=== PATIENT | male | born 1980 | race Caucasian/White ===

== ENCOUNTER → 2019-03-03 09:54 | Outpatient (CLI) | payer OTHER, SELFPAY ==
[2019-03-03 12:41] LABS: ALB/GLOB Ratio 1.2 RATIO (0.9-2.4); AST(SGOT) 36 U/L (15-37); Alanine Aminotransfer ALT/SGPT 46 U/L (16-61); Albumin, Serum 4.3 g/dL (3.2-5.0); Alkaline Phosphatase 53 U/L (45-117); Anion Gap 7 (5-15); BUN 17 mg/dL (7-18); Chloride 106 mmol/L (98-107); Cholesterol 204 mg/dL (200); Creatinine, Serum 1.13 mg/dL (0.70-1.30); EST Glomerular Filtration Rate 77 mL/min (>60); Est Glom Filt Rate - Afr Amer 93 mL/min (>60); Globulin 3.5 g/dL (2.2-4.2); Glucose 84 mg/dL (74-106); High Density Lipoprotein 58 mg/dL; Potassium 4.2 mmol/L (3.5-5.1); Protein, Total 7.8 g/dL (6.4-8.2); Sodium Level 140 mmol/L (136-145); Triglycerides 82 mg/dL; Very Low Density Lipoprotein 16 mg/dL (5-40)
[2019-03-06 15:04] LABS: CPK Total, Creatine Kinase 373 U/L (39-308)
== END ==
PROVIDERS: Family Provider Family Medicine; PCP Family Medicine; Referring Provider Family Medicine; Visit Provider Family Medicine
DX: E66.9 Obesity, unspecified (principal)
CPT/HCPCS: 36415; 80053; 80061; 82550

== ENCOUNTER → 2019-07-28 09:32 | Outpatient (CLI) | payer OTHER, SELFPAY ==
--- NOTE | 2019-07-28 09:36 | RAD_ITS ---
STUDY: X-RAY - RIGHT WRIST REASON FOR EXAM: Male, 39 years old. Wrist pain. Status post strenuous work outs at [employer]. TECHNIQUE: 3 view(s) of the wrist were obtained. COMPARISON: 11/30/2015. FINDINGS: Normal visualized distal radius and ulna. Normal radiocarpal articulation. Normal distal radioulnar articulation. Normal carpal bones. Normal carpal articulations. Normal carpometacarpal articulation of the thumb. Normal second through fifth carpometacarpal articulations. Normal visualized metacarpal bones. Mild soft tissue swelling around the wrist. RAD/Wrist min 3 Views IMPRESSION: 1. No acute fracture or acute osseous abnormality of the right wrist. 2. Mild soft tissue swelling around the wrist is the only change when compared to 11/30/2015. Electronically Signed: Gucci Emery MD at 8:32 EDT , Service support ,
== END ==
PROVIDERS: PCP Family Medicine; Referring Provider Family Medicine; Visit Provider Family Medicine
DX: M25.531 Pain in right wrist (principal)
CPT/HCPCS: 73110

== ENCOUNTER → 2020-03-25 07:42 | Outpatient (CLI) | payer OTHER, SELFPAY ==
[2020-03-25 10:21] LABS: Anion Gap 4 (5-15); BUN 16 mg/dL (7-18); BUN/Creat Ratio 14.4 RATIO (10-20); Calcium,Total 8.9 mg/dL (8.5-10.1); Chloride 105 mmol/L (98-107); Cholesterol 186 mg/dL (200); Creatinine, Serum 1.11 mg/dL (0.70-1.30); EST Glomerular Filtration Rate 78 mL/min (>60); Est Glom Filt Rate - Afr Amer 94 mL/min (>60); Glucose 96 mg/dL (74-106); High Density Lipoprotein 52 mg/dL; Potassium 3.7 mmol/L (3.5-5.1); Sodium Level 137 mmol/L (136-145); Triglycerides 184 mg/dL; Very Low Density Lipoprotein 37 mg/dL (5-40)
== END ==
PROVIDERS: PCP Family Medicine; Referring Provider Family Medicine; Visit Provider Family Medicine
DX: E78.5 Hyperlipidemia, unspecified (principal)
CPT/HCPCS: 36415; 80048; 80061

== ENCOUNTER → 2021-03-31 07:55 | Outpatient (CLI) | payer OTHER, SELFPAY ==
[2021-03-31 10:24] LABS: ALB/GLOB Ratio 1.1 RATIO (0.9-2.4); AST(SGOT) 91 U/L (15-37); Alanine Aminotransfer ALT/SGPT 162 U/L (16-61); Alkaline Phosphatase 48 U/L (45-117); Anion Gap 8 (5-15); BUN 18 mg/dL (7-18); BUN/Creat Ratio 17.3 RATIO (10-20); Calcium,Total 8.6 mg/dL (8.5-10.1); Chloride 106 mmol/L (98-107); Cholesterol 196 mg/dL (200); Creatinine, Serum 1.04 mg/dL (0.70-1.30); EST Glomerular Filtration Rate 84 mL/min (>60); Est Glom Filt Rate - Afr Amer 101 mL/min (>60); Globulin 3.7 g/dL (2.2-4.2); Glucose 98 mg/dL (74-106); High Density Lipoprotein 52 mg/dL; Potassium 3.5 mmol/L (3.5-5.1); Protein, Total 7.7 g/dL (6.4-8.2); Sodium Level 138 mmol/L (136-145); Triglycerides 111 mg/dL; Very Low Density Lipoprotein 22 mg/dL (5-40)
== END ==
PROVIDERS: PCP Family Medicine; Referring Provider Family Medicine; Visit Provider Family Medicine
DX: Z00.00 Encounter for general adult medical examination without abnormal findings (principal)
CPT/HCPCS: 36415; 80053; 80061

== ENCOUNTER 2021-07-25 15:48 | Outpatient (CLI) | payer OTHER, SELFPAY ==
--- NOTE | 2021-07-25 15:52 | RAD_ITS ---
STUDY: X-RAY - LEFT FOOT CLINICAL: Male, 41 years old. Injury to great toe. Pain. TECHNIQUE: 3 view(s) of the foot. COMPARISON: None. FINDINGS: Normal talus, calcaneus, and tarsal bones. Normal visualized subtalar, talonavicular, calcaneocuboid, tarsal and tarsometatarsal articulations. Normal metatarsi. Normal metatarsophalangeal joint of the great toe. Normal tibial and fibular sesamoid bones. Normal interphalangeal joint of the great toe. Normal phalanges of the great toe. Normal second through fifth metatarsophalangeal joints. Normal interphalangeal joints and phalanges of the lesser toes. The soft tissue structures are unremarkable. RAD/Foot min 3 Views IMPRESSION: No acute abnormality of the foot. Electronically Signed: Bay Morfin MD at 9:32 EST ,
== END 2021-07-25 23:59 | disposition home or self-care (01) ==
PROVIDERS: PCP Family Medicine; Referring Provider Family Medicine; Visit Provider Family Medicine
DX: S99.922A Unspecified injury of left foot, initial encounter (principal)
CPT/HCPCS: 73630

== ENCOUNTER → 2021-09-20 | Outpatient (CLI) | payer OTHER, SELFPAY ==
[2021-09-20 10:40] LABS: AST(SGOT) 51 U/L (15-37); Alanine Aminotransfer ALT/SGPT 106 U/L (16-61); Albumin, Serum 3.9 g/dL (3.2-5.0); Alkaline Phosphatase 44 U/L (45-117); Bilirubin, Direct 0.13 mg/dL (0.00-0.30); Globulin 3.4 g/dL (2.2-4.2); Protein, Total 7.3 g/dL (6.4-8.2)
== END | disposition home or self-care (01) ==
LOC: MTLAB 08:31
PROVIDERS: PCP Family Medicine; Referring Provider Family Medicine; Visit Provider Family Medicine
DX: R79.89 Other specified abnormal findings of blood chemistry (principal)
CPT/HCPCS: 36415; 80076

== ENCOUNTER → 2022-01-25 | Outpatient (CLI) | payer OTHER, SELFPAY ==
--- NOTE | 2022-01-25 16:49 | RAD_ITS ---
STUDY: X-RAY - RIGHT WRIST REASON FOR EXAM: Male, 41 years old. PAIN TECHNIQUE: 3 view(s) of the wrist were obtained. COMPARISON: 07.27.21 right wrist x-ray FINDINGS: Normal visualized distal radius and ulna. There is degenerative arthrosis of the radiocarpal articulation. Normal distal radioulnar articulation. There is been resection of the scaphoid since prior study. There is a fused appearance of the scapholunate and hamate and triquetrum.. Normal carpometacarpal articulation of the thumb. Normal second through fifth carpometacarpal articulations. Normal visualized metacarpal bones. RAD/Wrist min 3 Views IMPRESSION: Postoperative change of the wrist. Status post resection of the scaphoid and fusion of the lateral carpal bones. There is mild soft tissue edema. Electronically Signed: Kimmy Hutchison MD at 3:31 EDT ,
--- NOTE | 2022-01-25 16:50 | RAD_ITS ---
STUDY: X-RAY - RIGHT FOOT CLINICAL: Male, 41 years old. FOOT PAIN TECHNIQUE: 3 view(s) of the foot. COMPARISON: None. FINDINGS: There is an enthesophyte involving the posterior superior calcaneus at the site of insertion of the Achilles tendon. Normal visualized subtalar, talonavicular, calcaneocuboid, tarsal and tarsometatarsal articulations. Normal metatarsi. Normal metatarsophalangeal joint of the great toe. Normal tibial and fibular sesamoid bones. There is degenerative arthrosis of the interphalangeal joint of the great toe. Normal phalanges of the great toe. Normal second through fifth metatarsophalangeal joints. Normal interphalangeal joints and phalanges of the lesser toes. The soft tissue structures are unremarkable. RAD/Foot min 3 Views IMPRESSION: Minimal degenerative change. No visualized acute fracture. Electronically Signed: Kimmy Hutchison MD at 3:34 EDT ,
== END | disposition home or self-care (01) ==
LOC: MTRAD 16:48
PROVIDERS: PCP Family Medicine; Referring Provider Family Medicine; Visit Provider Family Medicine
DX: M25.539 Pain in unspecified wrist (principal); M79.671 Pain in right foot
CPT/HCPCS: 73110; 73630

== ENCOUNTER → 2022-03-22 | Outpatient (CLI) | payer OTHER, SELFPAY ==
[2022-03-22 12:40] LABS: AST(SGOT) 73 U/L (15-37); Alanine Aminotransfer ALT/SGPT 127 U/L (16-61); Alkaline Phosphatase 47 U/L (45-117); Anion Gap 10 (5-15); BUN 12 mg/dL (7-18); BUN/Creat Ratio 11.8 RATIO (10-20); Bilirubin, Direct 0.17 mg/dL (0.00-0.30); Calcium,Total 9.2 mg/dL (8.5-10.1); Chloride 104 mmol/L (98-107); Cholesterol 178 mg/dL (200); Creatinine, Serum 1.02 mg/dL (0.70-1.30); EST Glomerular Filtration Rate 85 mL/min (>60); Est Glom Filt Rate - Afr Amer 103 mL/min (>60); Globulin 3.9 g/dL (2.2-4.2); Glucose 128 mg/dL (74-106); High Density Lipoprotein 48 mg/dL; Potassium 3.8 mmol/L (3.5-5.1); Protein, Total 7.9 g/dL (6.4-8.2); Sodium Level 138 mmol/L (136-145); Triglycerides 119 mg/dL; Very Low Density Lipoprotein 24 mg/dL (5-40)
== END | disposition home or self-care (01) ==
LOC: MTLAB 09:38
PROVIDERS: PCP Family Medicine; Referring Provider Family Medicine; Visit Provider Family Medicine
DX: R79.89 Other specified abnormal findings of blood chemistry (principal)
CPT/HCPCS: 36415; 80053; 80061; 82248

== ENCOUNTER 2022-09-03 07:43 | Outpatient (RCR) | payer OTHER, SELFPAY | END 2022-09-16 23:59 | LOC: NS 07:43 | PROVIDERS: PCP Family Medicine; Visit Provider Family Medicine | DX: Z71.3 Dietary counseling and surveillance (principal); E66.9 Obesity, unspecified; Z68.39 Body mass index [BMI] 39.0-39.9, adult | CPT/HCPCS: 97802 ==

== ENCOUNTER 2022-10-08 07:52 | Outpatient (RCR) | payer OTHER, SELFPAY | END 2022-10-17 23:59 | LOC: NS 07:52 | PROVIDERS: PCP Family Medicine; Referring Provider Family Medicine; Visit Provider Family Medicine | DX: Z71.3 Dietary counseling and surveillance (principal); E66.9 Obesity, unspecified; Z68.39 Body mass index [BMI] 39.0-39.9, adult | CPT/HCPCS: 97803 ==

== ENCOUNTER 2022-11-19 08:49 | Outpatient (RCR) | payer OTHER, SELFPAY | END 2022-12-17 23:59 | LOC: NS 08:49 | PROVIDERS: PCP Family Medicine; Referring Provider Family Medicine; Visit Provider Family Medicine | DX: Z71.3 Dietary counseling and surveillance (principal); E66.9 Obesity, unspecified; Z68.39 Body mass index [BMI] 39.0-39.9, adult | CPT/HCPCS: 97803 ==

== ENCOUNTER → 2022-12-17 | Outpatient (CLI) | payer OTHER, SELFPAY ==
[2022-12-17 10:37] LABS: ALB/GLOB Ratio 0.9 RATIO (0.9-2.4); AST(SGOT) 110 U/L (15-37); Alanine Aminotransfer ALT/SGPT 172 U/L (16-61); Albumin, Serum 3.7 g/dL (3.2-5.0); Alkaline Phosphatase 54 U/L (45-117); Anion Gap 6 (5-15); BUN 11 mg/dL (7-18); Calcium,Total 8.5 mg/dL (8.5-10.1); Chloride 105 mmol/L (98-107); Cholesterol 192 mg/dL (200); EST Glomerular Filtration Rate 87 mL/min (>60); Est Glom Filt Rate - Afr Amer 105 mL/min (>60); Glucose 149 mg/dL (74-106); High Density Lipoprotein 42 mg/dL; Potassium 3.6 mmol/L (3.5-5.1); Protein, Total 7.7 g/dL (6.4-8.2); Sodium Level 138 mmol/L (136-145); Thyroid Stim Hormone (TSH) 1.04 uIU/mL (0.358-3.74); Triglycerides 155 mg/dL; Very Low Density Lipoprotein 31 mg/dL (5-40)
== END | disposition home or self-care (01) ==
PROVIDERS: PCP Family Medicine; Referring Provider Family Medicine; Visit Provider Family Medicine
DX: E11.65 Type 2 diabetes mellitus with hyperglycemia (principal)
CPT/HCPCS: 36415; 80053; 80061; 83036; 84403; 84443

== ENCOUNTER 2022-12-27 07:30 | Outpatient (RCR) | payer OTHER, SELFPAY | END 2023-01-17 23:59 | LOC: NS 07:30 | PROVIDERS: PCP Family Medicine; Referring Provider Family Medicine; Visit Provider Family Medicine | DX: Z71.3 Dietary counseling and surveillance (principal); E66.9 Obesity, unspecified; Z68.39 Body mass index [BMI] 39.0-39.9, adult | CPT/HCPCS: 97803 ==

== ENCOUNTER → 2023-01-09 | Outpatient (CLI) | payer OTHER, SELFPAY ==
--- NOTE | 2023-01-09 09:40 | RAD_ITS ---
STUDY: X-RAY - LUMBAR SPINE REASON FOR EXAM: Male, 42 years old. Low back pain. TECHNIQUE: 4 view(s) of the lumbar spine were obtained. COMPARISON: None FINDINGS: Normal lumbar lordosis. There is no substantial scoliosis. 8 mm of anterolisthesis of L4 on L3 and 7 mm of anterolisthesis of L5 on L4. Diffuse lower thoracic and lumbosacral facet sclerosis. Diffuse intervertebral disc space narrowing with osteophyte formation most marked at T10-T11, T11-T12, T12-L1, L2-L3 and L3-L4. Phleboliths. RAD/L/S Spine Min 4 Views IMPRESSION: Lower thoracic and lumbosacral spondylosis as described. Electronically Signed: Bay Morfin MD at 14:10 EDT ,
== END | disposition home or self-care (01) ==
LOC: MTRAD 09:35
PROVIDERS: PCP Family Medicine; Referring Provider Family Medicine; Visit Provider Family Medicine
DX: M54.50 Low back pain, unspecified (principal)
CPT/HCPCS: 72110

== ENCOUNTER 2023-01-24 07:23 | Outpatient (RCR) | payer OTHER, SELFPAY | END 2023-02-16 23:59 | LOC: NS 07:23 | PROVIDERS: PCP Family Medicine; Referring Provider Family Medicine; Visit Provider Family Medicine | DX: Z71.3 Dietary counseling and surveillance (principal); E66.9 Obesity, unspecified; Z68.39 Body mass index [BMI] 39.0-39.9, adult | CPT/HCPCS: 97803 ==

== ENCOUNTER 2023-04-29 07:00 | Outpatient (RCR) | payer OTHER, SELFPAY ==
--- NOTE | 2023-04-16 07:57 | HP.PTEVAL_ITS ---
Patient's Visit Information Visit Information Visit Information: SAPNA BERMUDEZ is a 43 year old M referred to Physical Therapy by Dr. Roberto Garcia MD with a diagnosis of DDD. Date of Evaluation: 04/16/23 Physical Therapist: RITA Giron Visit Plan Frequency: 2x /Week Duration: 4 Weeks Plan: 2X/ week for 4 weeks for Neutral spine core stability (HEP and modifiable routine to take to [employer]), postural exercises. At this point pt has no pain but is limited in ext ROM.... try some ext principle exercises when flared up and see if helps to reduce symptoms (pt kohler not have full R wrist ext and hard for him to do a press up). Subjective Subjective: Pt gets occ flare ups in his LB that at times it is pinching on sciatic nerve usually on the L side on the L hip and down the leg. He feels that his L leg feels different than the right. Most of the time it is fine but a couple of times of the year he will have the pain and not be able to move for a week and 1/2. This time it flared up on the right side. It generally radiates to the tailbone. He has had back pain since he was 10. The last time he flared up was the worst but the last time it was really concentrated into his hip. He had an x-ray and it showed some thinning of the discs. He had an MRI and went to see Dr Garcia that showed thinning of the disc and breaking down. Two discs were herniated to the right. discussed about trying PT for a few months and the next step would be shots that he can do after PT. He sleeps on his back or his side. 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 He has a standing desk he uses when it really flares up. Pain back pain: Pain Intensity (Out of 10): 0 L hip pain: Pain Intensity (Out of 10): 0 R hip pain: Pain Intensity (Out of 10): 0 Objective Objective: Gait: Normal gait pattern Standing heel and toe raises pt is able to do with good strength and full ROM Trunk AROM: flexion 100%, Ext 50%, SB B 75%, Rot B 75% ( no pain) LE MMT: R hip flex 16.3 and L 16.5 R knee ext 27.2 and L 23.4 R knee flex 13.7 and L 14.7 Patellar DTR: 1+/3 B SLUMP TEST: Negative B SLR: + on the L for R sided back pain. - on the R B HS tightness present Prone to VIRY X 10 (tight). pt felt looser after did them with less pain Attempted Prone press ups but pt has had R wrist surgery and does not have full ROM so went to repeated ext in stand 2 X 10... a little increase in back pain more than when walked in. Balance/Special Test Scores Oswestry Low Back Score: 4 Goals Goal 1:: I HEP (pt has membership at [employer]) Goal Time Frame: 4-6 Weeks Goal 2:: Sit with more upright posture at work and ADL's Goal Time Frame: 4-6 Weeks Goal 3:: Improve ext ROM to WFL without pain Goal Time Frame: 4-6 Weeks Rehabilitation Potential Rehabilitation Potential: Good Anticipated Interventions Patient/Client Instruction: Educate patient on: Condition and Plan of Care For the Purpose of:: To decrease pain, To increase ROM, To improve nutrient delivery to tissue, To improve muscle performance and motor function, To improve ability to perform ADL's, To increase tolerance to activity/condition/position, To improve performance and independence with ADL's, To decrease level of superv ision to perform tasks, To improve ability of physical actions for home/community/work/leisure, To improve health of tissue and To increase flexibility/ROM Therapeutic Exercise to Include: Strength training, Body mechanics, Postural training, Flexibilty training, Neuromotor development, Active ROM, Dynamic Lumbar Stabilization and Alek Exercises For the Purpose of:: To decrease pain, To decrease swelling/inflammation, To increase ROM, To improve nutrient delivery to tissue, To improve muscle performance and motor function, To improve ability to perform ADL's, To increase tolerance to activity/condition/position, To improve performance and independence with ADL's, To improve health of tissue, To decrease soft tissue restriction and To increase flexibility/ROM Manual Therapy Techniques to Include: Mobilization For the Purpose of:: To increase ROM, To improve nutrient delivery to tissue and To improve muscle performance and motor function IF ES: Yes Cryotherapy (ice pack, ice massage): Yes Thermo therapy (hot pack): Yes For the Purpose of:: To decrease pain, To decrease swelling/inflammation, To increase ROM and To improve nutrient delivery to tissue Text: Thank you for the opportunity to evaluate your patient. For Medicare and Medicare HMO plans, please review the plan of care and approve it. It will need to be FAXED BACK to us at [phone] for Medicare purposes. For Medicare only, by signing this I certify the plan of care. Please let me know if there are questions or concerns regarding this plan of care. Physician Signature: Date:
--- NOTE | 2023-07-10 16:41 | HP.PT.NRP(2) ---
Patient Information Patient Information: SAPNA BERMUDEZ was seen in my office for initial evaluation on . The following Plan of Care was established for this patient: Last Seen Last Seen: This patient was last seen in our office . Pertinent comments regarding their Physical therapy will appear below: At this point I will be discontinuing this patient from physical therapy. I would be happy to see this patient again in the future if found appropriate by the physician. Thank you! Chanel Mendieta, MPT
== END 2023-04-29 19:00 | disposition home or self-care (01) ==
LOC: PT 07:00
PROVIDERS: PCP Family Medicine; Referring Provider Orthopaedic Surgery Orthopaedic Surgery of the Spine; Visit Provider Orthopaedic Surgery Orthopaedic Surgery of the Spine
DX: M51.36 Other intervertebral disc degeneration, lumbar region (principal)
CPT/HCPCS: 97110; 97161

== ENCOUNTER → 2024-03-27 | Outpatient (CLI) | payer OTHER, SELFPAY ==
[2024-03-27 18:05] LABS: ALB/GLOB Ratio 1.2 RATIO (0.9-2.4); AST(SGOT) 71 U/L (15-37); Alanine Aminotransfer ALT/SGPT 118 U/L (16-61); Alkaline Phosphatase 46 U/L (45-117); Anion Gap 6 (5-15); BUN 12 mg/dL (7-18); BUN/Creat Ratio 12.2 RATIO (10-20); Calcium,Total 8.9 mg/dL (8.5-10.1); Chloride 106 mmol/L (98-107); Cholesterol 153 mg/dL (200); Creatinine, Serum 0.98 mg/dL (0.70-1.30); EST Glomerular Filtration Rate 88 mL/min (>60); Est Glom Filt Rate - Afr Amer 107 mL/min (>60); Globulin 3.4 g/dL (2.2-4.2); Glucose 90 mg/dL (74-106); High Density Lipoprotein 51 mg/dL; Potassium 3.6 mmol/L (3.5-5.1); Protein, Total 7.4 g/dL (6.4-8.2); Sodium Level 138 mmol/L (136-145); Triglycerides 112 mg/dL; Very Low Density Lipoprotein 22 mg/dL (5-40)
== END | disposition home or self-care (01) ==
LOC: MTLAB 16:35
PROVIDERS: PCP Family Medicine; Referring Provider Family Medicine; Visit Provider Family Medicine
DX: E11.65 Type 2 diabetes mellitus with hyperglycemia (principal)
CPT/HCPCS: 36415; 80053; 80061; 84443

== ENCOUNTER → 2024-05-14 | Outpatient (CLI) | payer OTHER, SELFPAY ==
--- NOTE | 2024-05-14 11:12 | RAD_ITS ---
STUDY: X-RAY - RIGHT KNEE REASON FOR EXAM: Male, 44 years old. swelling, ? nodule in infrapatellar area. R knee TECHNIQUE: 4 view(s) of the knee. COMPARISON: None. FINDINGS: Normal visualized distal femur. Normal visualized proximal tibia and fibula. Normal proximal tibiofibular articulation. There is mild degenerative arthrosis of the medial femorotibial compartment. There is mild degenerative arthrosis of the lateral femorotibial compartment. There is mild degenerative arthrosis of the patellofemoral articulation. The soft tissue structures are unremarkable. RAD/Knee 4 or More Views IMPRESSION: Degenerative arthrosis. Electronically Signed: Marino Plunkett MD at 17:33 EST ,
== END | disposition home or self-care (01) ==
LOC: MTRAD 11:12
PROVIDERS: PCP Family Medicine; Referring Provider Family Medicine; Visit Provider Family Medicine
DX: M25.561 Pain in right knee (principal)
CPT/HCPCS: 73564

== ENCOUNTER → 2024-08-06 | Outpatient (CLI) | payer OTHER, SELFPAY ==
--- NOTE | 2024-08-06 15:43 | RAD_ITS ---
EXAM: XR Chest, 2 Views CLINICAL INDICATION: COUGH TECHNIQUE: Frontal and lateral views of the chest. COMPARISON: No relevant prior studies available. FINDINGS: LUNGS AND PLEURAL SPACES: Unremarkable. No consolidation. No pneumothorax. HEART: Unremarkable. No cardiomegaly. MEDIASTINUM: Unremarkable. Normal mediastinal contour. BONES/JOINTS: Unremarkable. No acute fracture. RAD/Chest PA and Lateral IMPRESSION: No acute cardiopulmonary process. Reading [facility]
== END | disposition home or self-care (01) ==
LOC: MTRAD 15:43
PROVIDERS: PCP Family Medicine; Referring Provider Family Medicine; Visit Provider Family Medicine
DX: J40 Bronchitis, not specified as acute or chronic (principal)
CPT/HCPCS: 71046

== ENCOUNTER → 2025-03-30 | Outpatient (CLI) | payer OTHER, SELFPAY ==
--- OUTSIDE RECORDS SUMMARY | 2025-03-30 08:31 | XMS RPT_ITS | CCD ---
Author Organization [facility] Care Team Providers Care Store Deli Manager Name Role Phone Coby Sanford MD Unavailable ELIER SOMERS Referring Unavailabl e Unavailable Primary Care Provider UnavailELIER Patel Referring Unavailabl e Elier Somers Referring Unavailable Elier Somers Primary Care Unavailable Elier Somers Attending Unavailable Yonis, Elier Referring Unavailable Yonis, Elier Primary Care Unavailable Elier Somers Attending Unavailable Yonis, Elier Referring Unavailable Yonis, Elier Primary Care Unavailable Elier Somers Attending Unavailable Elier Somers Referring Unavailable Elier Somers Primary Care Unavailable Padma Mcpherson Attending Unavailable Yonis DUTTA, Dr. Mosquera Primary Care Provider Yonis DUTTA, Dr. Mosquera Attending Provider Dr. Elier Somers MD Referring Provider Padma Ibarra Attending Provider Medications Current Medications Medication Drug Class(es) Dates Sig (Normalized) Sig (Original) glucosamine sulfate 500 mg oral tablet (2 sources) Start: 02-27-2023 take 1 tablet by mouth once daily Glucosamine Sulfate (Cidatrine (Glucosamine)) 500 mg tablet Active 500 mg PO DAILY February 27, 2023 12:00am administer with a meal Semaglutide (2 sources) Start: 02-27-2023 Semaglutide (Ozempic) 1 mg/dose (4 mg/3 mL) pen injector Active mg SC February 27, 2023 12:00am Start: 02-27-2023 Semaglutide (O zempic) 1 mg/dose (4 mg/3 mL) pen injector Active MG SC February 26, 2023 11:00pm Vitamin B Complex (B Complex-Vitamin B12) tablet (2 sources) Start: 02-27-2023 Vitamin B Comp tanja (B Complex-Vitamin B12) tablet Active 1 {tbl} PO DAILY February 27, 2023 12:00am Start: 02-27-2023 take 1 tablet by tanmay th once daily Vitamin B Complex (B Complex-Vitamin B12) tablet Active 1 TABLET PO DAILY February 26, 2023 11:00pm Completed/Discontinued Medications Medication Drug Class(es) Dates Sig (Normalized) Sig (Original) GLUCOSAMINE-CHONDROI T-VIT C-MN (1 source) Start: 04-25-2020 GLUCOSAMINE 1500 COMPLEX CAPS 1 capsule daily GLUCOSAMINE-CHONDRO IT-VIT C-MN [id number] Constanza Peña LPN 24 hr metFORMIN hydrochloride 500 mg extended release oral tablet (2 sources) Biguanide Start: 02-27-2023 End: 07-11-2024 take 1 tablet by mouth every twenty-four hours Metformin 500 mg tablet extended release 24 hr Discontinued mg PO February 27, 2023 12:00am July 11, 2024 2:14pm Start: 02-27-2023 Metformin Acti ve MG PO February 26, 2023 11:00pm oseltamivir 75 mg oral capsule (1 source) Neuraminidase Inhibitor Start: 07-11-2024 End: 07-16-2024 take 1 capsule by mouth twice daily Oseltamivir (Tamiflu) 75 mg capsule Discontinued 75 mg PO TWICE A DAY 10 5 July 11, 2024 1:00am July 15, 2024 1:00am July 16, 2024 1:13am VITAMINS-LIPOTROPI CS (1 source) Start: 04-25-2020 COMPLEX B-100 CR-TABS 1 tablet daily VITAMINS-LIPOTROPI CS [id number] Constanza Guerrerosaro 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 Problems Active Problems Problem Classification Problem Date Documented Date Episodic/Chronic Chronic obstructive pulmonary disease and bronchiectasis (1 source) Bronchitis, not specified as acute or chronic; Translations: [Bronchitis, not specified as acute or chronic] Onset: 08-14-2024 Episodic Diabetes mellitus with complications (1 source) Type 2 diabetes mellitus with hyperglycemia; Translations: [Type 2 diabetes mellitus with hyperglycemia] Onset: 04-22-2024 Chronic Diabetes mellitus without complication (2 sources) Diabetes mellitus; Translations: [Type 2 diabetes mellitus without complications] 02-27-2023 Chronic Influenza (3 sources) Influenza due to other identified influenza virus with other respiratory manifestations; Translations: [Influenza due to Influenza A virus] Onset: 08-05-2024 07-11-2024 Episodic Joint disorders and dislocations; trauma-related (1 source) Rupture of wrist ligament; Translations: [Sprain of other part of right wrist and hand, initial encounter] Onset: 04-29-2020 04-29-2020 Chronic Other acquired deformities (1 source) Spondylolisthesis, site unspecified; Translations: [Spondylolisthesis, site unspecified] Onset: 02-14-2023 Episodic Other nervous system disorders (1 source) Carpal tunnel syndrome, right upper limb; Translations: [Carpal tunnel syndrome, right upper limb] Onset: 01-05-2016 01-05-2016 Chronic Other non-traumatic joint disorders (1 source) Pain in right knee; Translations: [Pain in right knee] Onset: 06-10-2024 Episodic Other screening for suspected conditions (not mental disorders or infectious disease) (1 source) Other specified abnormal findings of blood chemistry; Translations: [Other specified abnormal findings of blood chemistry] Onset: 04-20-2022 Episodic Spondylosis; intervertebral disc disorders; other back problems (2 sources) Degeneration of lumbar intervertebral disc; Translations: [Other intervertebral disc degeneration, lumbar region] 02-26-2023 Chronic Spondylosis; intervertebral disc disorders; other back problems (4 sources) Lumbar radiculopathy; Translations: [Radiculopathy, lumbar region] 02-27-2023 Episodic Past or Other Problems Problem Classification Problem Date Documented Da te Episodic/Chronic Unclassified (1 source) Problem Results Test Name Value Interpretation Reference Range Facility Chest PA and Lateralon 08-06 Chest PA and Lateral [facility] Imaging Services [address], [place] [id number] Chest PA and Lateral MR#: [id number] Acct: [id number] Name: SAPNA BOYD Rep #: [id number] : 1980 M 44 From: Efe Carcamo MD PCP: Dr. Elier Somers MD Status: REG CLI Study: Chest PA and Lateral Date of Exam: 08/06/24 Exam# [id number] Ordering Dr: Elier Somers EXAM: XR Chest, 2 Views CLINICAL INDICATION: COUGH TECHNIQUE: Frontal and lateral views of the chest. COMPARISON: No relevant prior studies available. FINDINGS: LUNGS AND PLEURAL SPACES: Unremarkable. No consolidation. No pneumothorax. HEART: Unremarkable. No cardiomegaly. MEDIASTINUM: Unremarkable. Normal mediastinal contour. BONES/JOINTS: Unremarkable. No acute fracture. RAD/Chest PA and Lateral IMPRESSION: No acute cardiopulmonary process. Reading [facility] CC: Dr. Elier Somers MD Java Lead Architect: Signed Normal [facility] Urgent Care Visit Reporton 0 07-11-2024 Urgent Care Visit Report [facility] [address], [address] [place] [address] OFFICE VISIT Date of Service: 07/11/24 MR#: [id number] Acct: [id number] Name: SAPNA BOYD Rep #: [id number] : 1980 Provider: MERCY Mcpherson Age/Sex: 44/M Location: [facility] Status: Signed Intake Vital Signs 02/27/23 07:27 07/11/24 12:47 07/11/24 13:13 Height 6 ft 1 in 6 ft 1 in 6 ft 1 in Weight: 269 lb 8 oz BMI 35.5 BP 110/62 Blood Pressure Location Rt brachial Position Sitting Respiration 17 Pulse 90 Pulse Source NIBP Temp 98.6 F Temp Source Oral Pulse Oximetry (%) 97 Oxygen Delivery Method room air Intake Visit Reasons: Cough Chief Complaint: cough, CRUMP, fever, drainage Senior Architect Required: No Is patient in pain?: No Allergies No Known Allergies Allergy (Verified 07/11/24 13:34) Medications ???Medication ???Instructions ???Recorded ???Confirmed ???Type glucosamine sulfate 500 mg tablet 500 mg PO DAILY 02/27/23 02/27/23 History (Cidatrine (glucosamine)) semaglutide 1 mg/dose (4 mg/3 mL) mg subcut 02/27/23 02/27/23 Histo ry subcutaneous pen injector (Ozempic) vitamin B complex (B 1 tab PO DAILY 02/27/23 02/27/23 H istory Complex-Vitamin B12 tablet) oseltamivir 75 mg capsule (Tamiflu) 75 mg PO BID 5 days #10 caps 07/11/24 Rx Have you fallen in the past year?: No Nurse's Note: cough, CRUMP, fever, drainage x [address], BA PFSH Surgical History (Updated 02/27/23 @ 07:34 by Heriberto Steiner, RN) History of mandibular surgery H/O right wrist surgery Hx of carpal tunnel repair Family History (Updated 02/27/23 @ 07:35 by Heriberto Steiner, RN) Mother Hypertension Social History (Updated 02/27/23 @ 07:36 by Heriberto Steiner, RN) Smoking Status: Never smoker alcohol intake: current alcohol intake frequency: holidays/special occasions only HPI HPI Chief Complaint: cough, CRUMP, fever, drainage Details: SAPNA BOYD, is a 44 M who presents to the office today for cold sx -+ flu A in office -sx started on - myalgias, low grade temp, cough, runny nose - no other sx -tried so far Dayquil and Nyquil ROS Const Constitutional: Positive for other (ROS negative x6 except what was placed in HPI) Exam Const General: cooperative, comfortable and no acute distress Orientation: alert, awake and oriented x3 HENMT Other: -deferred d/t + flu A Resp Effort Inspection: normal respiratory effort, able to speak in complete sentences and symmetric chest movement Auscultation: Bilateral: Clear to Auscultation, Left: Clear to Auscultation and Right: Clear to Auscultation Cardio Rate: regular rate Rhythm: regular rhythm Heart Sounds: S1 normal and S2 normal GI Auscultation: normal bowel sounds Palpation: soft Skin General: no rashes or lesions noted and turgor normal Neuro General: patient alert, patient awake and patient oriented x3 Cognition: normal cognition Speech: speech normal Psych Appearance: grossly normal Mental Status: mental status grossly normal Attitude: cooperative Thought Process: normal Thought Content: normal Coding Level of Care Code Off vis,new,level 3 Diagnoses Influenza A J10.1 Assessment and Plan Assessment and Plan (1) Influenza A: Status: Acute Plan: Drink plenty of fluids. This includes water, warm soup and drinks that contain minerals, called rehydration solutions. Rest. You may need to change or cancel some of your activities depending on your symptoms. Take acetaminophen (Tylenol, others) or ibuprofen (Advil, Motrin IB, others). These medicines can help lower fever and help with muscle aches or headache. Stay home from work, school or other public places for at least 24 hours after your fever is gone without use of fever-reducing medicine. This helps stop the spread of the virus that causes flu. Most people feel better within a week of becoming infected with the flu virus. But coughing may last for another one or two weeks. Please follow up with your Primary Care Physician for ongoing chronic problems. If symptoms change or worsen, please present to Emergency Room for further evaluation 1. See visit diagnoses, disposition, and orders. 2. Reviewed and updated medication list; Discussed probable diagnosis, test results if available in office today and management options with patient/guardian: agreed to the medical plan above 3. Education provided regarding visit today, see after visit summary. Instruction provided in the use of fluids, vaporizer, acetaminophen, and/or other OTC medication for symptom control. Explained use of antibiotics only for proven or strongly suspected bacterial infections. 4. Prevention and health maintenance with primary care provider. 5. Patient/guardian educated to pro (more content not included)... Normal [facility] Knee 4 or More Viewson 05-14 Knee 4 or More Views [facility] Imaging Services [address], [place] [id number] Knee 4 or More Views MR#: [id number] Acct: [id number] Name: SAPNA BOYD Rep #: [id number] : 1980 M 44 From: Marino Plunkett MD PCP: Dr. Elier Somers MD Status: REG CLI Study: Knee 4 or More Views Date of Exam: 05/14/24 Exam# [id number] Ordering Dr: Elier Somers [id number] STUDY: X-RAY - RIGHT KNEE REASON FOR EXAM: Male, 44 years old. swelling, ? nodule in infrapatellar area. R knee TECHNIQUE: 4 view(s) of the knee. COMPARISON: None. FINDINGS: Normal visualized distal femur. Normal visualized proximal tibia and fibula. Normal proximal tibiofibular articulation. There is mild degenerative arthrosis of the medial femorotibial compartment. There is mild degenerative arthrosis of the lateral femorotibial compartment. There is mild degenerative arthrosis of the patellofemoral articulation. The soft tissue structures are unremarkable. RAD/Knee 4 or More Views IMPRESSION: Degenerative arthrosis. Electronically Signed: Marino Plunkett MD at 17:33 EST , CC: Dr. Elier Somers MD Java Lead Architect: Signed Normal [facility] Comprehensive Metabolic Prof ilon 03-27-2024 Albumin [Mass/Vol] 4.0 g/dL Normal 3.2-5.0 [facility] Comment on above: Order Comment: Order Date: 02/12/24 Order Info: [id number] - CMP Order Info: [id number] - LIPID Order Info: [id number] - TSH Performed By: #### L 501.9520, L500.4050, L500.4100 #### [facility] [address] [place], [place], [id number] Albumin/Globulin [Mass ratio] 1.2 {ratio} Normal 0.9-2.4 [facility] Comment on above: Order Comment: Order Date: 02/12/24 Order Info: [id number] - CMP Order Info: [id number] - LIPID Order Info: [id number] - TSH Performed By: #### L 501.9520, L500.4050, L500.4100 #### [facility] [address] [place], [place], [address] ALK P 46 U/L Normal 45-117 [facility] Comment on above: Order Comment: Order Date: 02/12/24 Order Info: 785-1 - CMP Order Info: [id number] - LIPID Order Info: [id number] - TSH Performed By: #### L 501.9520, L500.4050, L500.4100 #### [facility] [address] [place], [address] ALT [Catalytic activity/Vol] 118 U/L High 16-61 [facility] Comment on above: Order Comment: Order Date: 02/12/24 Order Info: 785- - CMP Order Info: - LIPID Order Info: 3 - TSH Performed By: #### L 501.9520, L500.4050, L500.4100 #### [facility] [address] [place], [place], [address] AST [Catalytic activity/Vol] 71 U/L High 15-37 [facility] Comment on above: Order Comment: Order Date: 02/12/24 Order Info: 785-05 - CMP Order Info: - LIPID Order Info: 3 - TSH Performed By: #### L 501.9520, L500.4050, L500.4100 #### [facility] [address] [place], [address] Bilirubin [Mass/Vol] 0.60 mg/dL Normal 0.20-1.00 [facility] Comment on above: Order Comment: Order Date: 02/12/24 Order Info: 785-1 - CMP Order Info: [id number] - LIPID Order Info: [id number] - TSH Result Comment: For patients on eltrombopag therapy, use of Dimension [place] TBIL is not recommended. Performed By: #### L 501.9520, L500.4050, L500.4100 #### [facility] [address] [place], [address] BUN/CRE 12.2 RATIO Normal 10-20 [facility] Comment on above: Order Comment: Order Date: 02/12/24 Order Info: 785-1 - CMP Order Info: [id number] - LIPID Order Info: 3015-3 - TSH Performed By: #### L 501.9520, L500.4050, L500.4100 #### [facility] [address] [place], [address] CA,Total 8.9 mg/dL Normal 8.5-10.1 [facility] Comment on above: Order Comment: Order Date: 02/12/24 Order Info: 785- - CMP Order Info: - LIPID Order Info: 3 - TSH Performed By: #### L 501.9520, L500.4050, L500.4100 #### [facility] [address] [place], [address] Chloride [Moles/Vol] 106 mmol/L Normal 98-107 [facility] Comment on above: Order Comment: Order Date: 02/12/24 Order Info: 785-05 - CMP Order Info: [id number] - LIPID Order Info: 3015-3 - TSH Performed By: #### L 501.9520, L500.4050, L500.4100 #### [facility] [address] [place], [address] CO2 [Moles/Vol] 26.0 mmol/L Normal 21.0-32.0 [facility] Comment on above: Order Comment: Order Date: 02/12/24 Order Info: 0786-1 - CMP Order Info: [id number] - LIPID Order Info: 3015-3 - TSH Performed By: #### L 501.9520, L500.4050, L500.4100 #### [facility] [address] [place], [address] Creatinine [Mass/Vol] 0.98 mg/dL Normal 0.70-1.30 [facility] Comment on above: Order Comment: Order Date: 02/12/24 Order Info: 07 - CMP Order Info: [id number] - LIPID Order Info: [id number] - TSH Result Comment: The validity of the calculated GFR GFRAA in patients over 70 years has not been determined. Clinical correlation is essential. Performed By: #### L 501.9520, L500.4050, L500.4100 #### [facility] [address] [place], [address] EST GFR - AA 107 mL/min Normal >60 [facility] Comment on above: Order Comment: Order Date: 02/12/24 Order Info: 785-05 - CMP Order Info: - LIPID Order Info: [id number] - TSH Result Comment: Afri can Citizen Of [place] GFR Calc Performed By: #### L 501.9520, L500.4050, L500.4100 #### [facility] [address] [place], [address] GAP 6 Normal 5-15 [facility] Comment on above: Order Comment: Order Date: 02/12/24 Order Info: 785-05 - CMP Order Info: [id number] - LIPID Order Info: [id number] - TSH Performed By: #### L 501.9520, L500.4050, L500.4100 #### [facility] [address] [place], [address] GFR/1.73 sq M.predicted among non-blacks MDRD (S/P/Bld) [Vol rate/Area] 88 mL/min/{1.73_m2} Normal >60 [facility] Comment on above: Order Comment: Order Date: 02/12/24 Order Info: 07 - CMP Order Info: [id number] - LIPID Order Info: 3 - TSH Result Comment: Non- GFR Calc Performed By: #### L 501.9520, L500.4050, L500.4100 #### [facility] [address] [place], [address] Globulin (S) [Mass/Vol] 3.4 g/dL Normal 2.2-4.2 [facility] Comment on above: Order Comment: Order Date: 02/12/24 Order Info: 785- - CMP Order Info: [id number] - LIPID Order Info: 3015-3 - TSH Performed By: #### L 501.9520, L500.4050, L500.4100 #### [facility] [address] [place], [address] Glucose [Mass/Vol] 90 mg/dL Normal 74-106 [facility] Comment on above: Order Comment: Order Date: 02/12/24 Order Info: 785-05 - CMP Order Info: - LIPID Order Info: 3 - TSH Performed By: #### L 501.9520, L500.4050, L500.4100 #### [facility] [address] [place], [address] Potassium [Moles/Vol] 3.6 mmol/L Normal 3.5-5.1 [facility] Comment on above: Order Comment: Order Date: 02/12/24 Order Info: 785-05 - CMP Order Info: [id number] - LIPID Order Info: 3015-3 - TSH Performed By: #### L 501.9520, L500.4050, L500.4100 #### [facility] [address] [place], [address] Sodium [Moles/Vol] 138 mmol/L Normal 136-145 [facility] Comment on above: Order Comment: Order Date: 02/12/24 Order Info: 785-05 - CMP Order Info: [id number] - LIPID Order Info: 3 - TSH Performed By: #### L 501.9520, L500.4050, L500.4100 #### [facility] [address] [place], [address] T PROT 7.4 g/dL Normal 6.4-8.2 [facility] Comment on above: Order Comment: Order Date: 02/12/24 Order Info: 0786-1 - CMP Order Info: [id number] - LIPID Order Info: 3015-3 - TSH Performed By: #### L 501.9520, L500.4050, L500.4100 #### [facility] [address] [place], [address] Urea nitrogen [Mass/Vol] 12 mg/dL Normal 7-18 [facility] Comment on above: Order Comment: Order Date: 02/12/24 Order Info: 785- - CMP Order Info: [id number] - LIPID Order Info: 3 - TSH Performed By: #### L 501.9520, L500.4050, L500.4100 #### [facility] [address] [place], [address] Lipid Profileon 03-27-2024 Cholesterol [Mass/Vol] 153 mg/dL Normal 200 [facility] Comment on above: Order Comment: Order Date: 02/12/24 Order Info: 0786 - CMP Order Info: - LIPID Order Info: 3 - TSH Result Comment: <200 mg/dL Desirable 200-240 mg/dL Borderline >240 mg/dL High Risk Performed By: #### L 501.9520, L500.4050, L500.4100 #### [facility] [address] [place], [address] Cholesterol in HDL [Mass/Vol] 51 mg/dL Normal [facility] Comment on above: Order Comment: Order Date: 02/12/24 Order Info: 0786 - CMP Order Info: [id number] - LIPID Order Info: [id number] - TSH Result Comment: The drugs N-Acetylcysteine and Metamizole may falsely depress this assay. Reference Range HDL <40 mg/dL Low HDL Cholesterol HDL >or= 60 mg/dL High HDL Cholesterol Performed By: #### L 501.9520, L500.4050, L500.4100 #### [facility] [address] [place], [address] Cholesterol in LDL [Mass/Vol] 80 mg/dL Normal 0-130 [facility] Comment on above: Order Comment: Order Date: 02/12/24 Order Info: 785- - CMP Order Info: - LIPID Order Info: 3 - TSH Performed By: #### L 501.9520, L500.4050, L500.4100 #### [facility] [address] [place], [address] Cholesterol in VLDL [Mass/Vol] 22 mg/dL Normal 5-40 [facility] Comment on above: Order Comment: Order Date: 02/12/24 Order Info: 785-05 - CMP Order Info: - LIPID Order Info: [id number] - TSH Performed By: #### L 501.9520, L500.4050, L500.4100 #### [facility] [address] [place], [address] Triglyceride [Mass/Vol] 112 mg/dL Normal [facility] Comment on above: Order Comment: Order Date: 02/12/24 Order Info: 785-05 - CMP Order Info: - LIPID Order Info: [id number] - TSH Result Comment: The drugs N-Acetylcysteine and Metamizole may falsely depress this assay. Serum Triglycerides Reference Interval Normal <150 mg/dL Borderline high 150 - 199 mg/dL High 200 - 499 mg/dL Very High > or = 500 mg/dL Performed By: #### L 501.9520, L500.4050, L500.4100 #### [facility] [address] [place], [address] Thyroid Stim Hormone (TSH)on 03-27-2024 TSH 1.140 uIU/mL Normal 0.358-3.740 [facility] Comment on above: Order Comment: Order Date: 02/12/24 Order Info: 0786 - CMP Order Info: - LIPID Order Info: 3 - TSH Performed By: #### L 501.9520, L500.4050, L500.4100 #### [facility] [place], [address] MRI LUMBAR SPINE WO/W IVCONo n 02-14-2023 MRI LUMBAR SPINE WO/W IVCON * * *Final Report* * * DATE OF EXAM: Feb 14 2023 11:37AM LDM 0304 - MRI LUMBAR SPINE WO/W IVCON / PROCEDURE REASON: Anterolisthesis (M43.10) * * * * Physician Interpretation * * * * EXAMINATION: MRI LUMBAR SPINE WO/W IVCON CLINICAL HISTORY: Anterolisthesis (M43.10) COMPARISON: Lumbar spine radiographs 12/06/2006. TECHNIQUE: Routine MRI lumbar spine was performed before and after the intravenous administration of gadolinium Contrast: 20 mL Dotarem IV. RESULT: Counting reference: Lumbosacral junction. For the purposes of this report, L4-5 is considered the level of the iliac crest and there are 5 lumbar-type vertebrae. Anatomic variants: None. Vertebral bodies are normal in height. There is moderate disc space narrowing at L2-3 and L5-S1. There is mild narrowing at L1-2 and L4-5. There are mild diffuse endplate degenerative changes. There is a mild retrolisthesis of L2 upon L3 and L3 upon L4. The conus medullaris has a normal appearance and terminates at approximately the L1-2 level. There is no associated abnormal enhancement. T12-L1: Unremarkable. L1-2: There is a subtle disc bulge and slight facet hypertrophy. No significant central canal or foraminal stenosis. L2-3: There is a disc bulge indenting the thecal sac. There is mild facet hypertrophy. There is prominence of the dorsal epidural fat. There is mild to moderate central canal stenosis. There is mild left foraminal stenosis. The right foramen is patent. L3-4: There is a disc bulge asymmetric to the left. There is a superimposed small central disc protrusion indenting the thecal sac is mild facet and ligamentous hypertrophy. There is mild to moderate central canal stenosis. There is moderate left foraminal narrowing. The right foramen is patent. L4-5: There is a disc bulge with a superimposed small right paracentral disc protrusion. It extends into the right lateral recess and abuts the right traversing L5 nerve root. There is mild facet and ligamentous hypertrophy. There is mild to moderate central canal stenosis. There is mild right proximal foraminal narrowing. The left foramen is patent. L5-S1: There is a disc bulge indenting the thecal sac. There is moderate facet hypertrophy. There is mild central canal stenosis. There is moderate bilateral foraminal stenosis. There is no evidence of abnormal enhancement or mass lesion. IMPRESSION: 1. At L2-3, there is multifactorial mild to moderate central canal stenosis. There is mild left foraminal stenosis. 2. At L3-4, there is mild to moderate central canal stenosis. There is moderate left foraminal stenosis. 3. At L4-5, there is a small right paracentral disc protrusion abutting the right traversing L5 nerve root. There is mild to moderate central canal stenosis. There is mild right foraminal stenosis. 4. At L5-S1, there is mild central canal stenosis. There is moderate bilateral foraminal stenosis. Anatomic variant: None. L4-5 is considered the level of the iliac crest and assume there are 5 lumbar-type vertebrae. Java Lead Architect: PSCB Transcribe Date/Time: Feb 15 2023 12:15P Dictated by : MASOUD العلي MD This examination was interpreted and the report reviewed and electronically signed by: MASOUD العلي MD on Feb 15 2023 12:20PM EST [id number] Normal [facility] Basophil percentageOrdered B y: Jc Somers on 12-17-2022 Bilirubin [Mass/Vol] 0.70 mg/dL 0.20-1.00 [facility] Comment on above: For patients on eltr ombopag therapy, use of Dimension [place] TBIL is not recommended. Chloride [Moles/Vol] 105 mmol/L 98-107 [facility] Cholesterol [Mass/Vol] 192 mg/dL <200 [facility] Comment on above: <200 mg/dL Desirable 200-240 mg/dL Borderline >240 mg/dL High Risk Glucose [Mass/Vol] 149 mg/dL 74-106 [facility] Comment on above: Fasting Glucose resu lt greater than or equal to 126 mg/dL suggests DIABETES MELLITUS per A.D.A. criteria. Potassium [Moles/Vol] 3.6 mmol/L 3.5-5.1 [facility] Protein [Mass/Vol] 7.7 g/dL 6.4-8.2 [facility] Sodium [Moles/Vol] 138 mmol/L 136-145 [facility] Testosterone [Mass/Vol] 238.20 ng/dL [facility] Comment on above: CENTRAL 90% REFERENC E RANGES MALE AGE <50 197.44 - 669.58 ng/dL MALE AGE > or = 50 187.72 - 684.19 ng/dL FEMALE AGE <50 8.38 - 35.01 ng/dL FEMALE AGE > or = 50 <7.00 - 35.92 ng/dL Effective as of 12/13/20 Triglyceride [Mass/Vol] 155 mg/dL <199 [facility] Comment on above: The drugs N-Acetylcy steine and Metamizole may falsely depress this assay.Serum Triglycerides Reference Interval Normal <150 mg/dL Borderline high 150 - 199 mg/dL High 200 - 499 mg/dL Very High > or = 500 mg/dL Laboratory - Chemistry and C hemistry - challengeOrdered By: cJ Somers on 12-17-2022 ALP [Catalytic activity/Vol] 54 U/L 45-117 [facility] ALT [Catalytic activity/Vol] 172 U/L 16-61 [facility] CO2 [Moles/Vol] 27.0 mmol/L 21.0-32.0 [facility] Globulin (S) [Mass/Vol] 4.0 g/dL 2.2-4.2 [facility] Urea nitrogen/Creatinine [Mass ratio] 11.0 mg/mg 10-20 [facility] No Panel InformationOrdered By: Jc Somers on 12-17-2022 Estimated GFR (MDRD) Amer 105 mL/min >60 [facility] Comment on above: GFR Calc Estimated GFR (MDRD) Non-Af Amer 87 mL/min >60 [facility] Comment on above: Non- GFR Calc Thyroid Stimulating Hormone (TSH) 1.04 uIU/mL 0.358-3.74 [facility] Serum or plasma albumin maria l urement (mass/volume)Ordered By: Jc Somers on 12-17-2022 Albumin [Mass/Vol] 3.7 g/dL 3.2-5.0 [facility] Serum or plasma albumin/glob ulin mass ratioOrdered By: Jc Somers on 12-17-2022 Albumin/Globulin [Mass ratio] 0.9 {ratio} 0.9-2.4 [facility] Serum or plasma calcium maria l urement (mass/volume)Ordered By: Jc Somers on 12-17-2022 Calcium [Mass/Vol] 8.5 mg/dL 8.5-10.1 [facility] Serum or plasma cholesterol in HDL measurement (mass/volume)Ordered By: Jc Somers on 12-17-2022 Cholesterol in HDL [Mass/Vol] 42 mg/dL >40 [facility] Comment on above: The drugs N-Acetylcy steine and Metamizole may falsely depress this assay. Reference Range HDL <40 mg/dL Low HDL Cholesterol HDL >or= 60 mg/dL High HDL Cholesterol Serum or plasma cholesterol in VLDL measurement (mass/volume)Ordered By: Jc Somers on 12-17-2022 Cholesterol in VLDL [Mass/Vol] 31 mg/dL 5-40 [facility] Serum or plasma creatinine m easurement (mass/volume)Ordered By: Jc Somers on 12-17-2022 Creatinine [Mass/Vol] 1.00 mg/dL 0.70-1.30 [facility] Comment on above: The validity of the calculated GFR & GFRAA in patients over 70 years has not been determined. Clinical correlation is essential. Serum or plasma low density lipoprotein (LDL) cholesterol measurement (mass/volume)Ordered By: Jc Somers on 12-17-2022 Cholesterol in LDL [Mass/Vol] 119 mg/dL 0-130 [facility] Serum or plasma urea nitroge n measurement (mass/volume)Ordered By: Jc Somers on 12-17-2022 Urea nitrogen [Mass/Vol] 11 mg/dL 7-18 [facility] Thin prep Papanicolaou smear with manual screeningOrdered By: Jc Somers on 12-17-2022 Thin prep Papanicolaou smear with manual screening 110 U/L 15-37 [facility] Thin prep Papanicolaou smear with manual screening 6 5-15 [facility] Whole blood hemoglobin A1c/t otal hemoglobin ratio (mass fraction)Ordered By: Jc Somers on 12-17-2022 HbA1c (Bld) [Mass fraction] 9.0 % 3.8-5.6 [facility] Comment on above: Normal < 5.7 % Predi abetic 5.7 - 6.4 % Diabetic >or= 6.5 % Please note range changes. US ABD RIGHT UPPER QUADRANTo n 04-20-2022 US ABD RIGHT UPPER QUADRANT * * *Final Report* * * DATE OF EXAM: Apr 20 2022 7:54AM WRU [id number] - US ABD RIGHT UPPER QUADRANT / PROCEDURE REASON: Elevated LFT's * * * * Physician Interpretation * * * * EXAMINATION: RIGHT UPPER QUADRANT ULTRASOUND CLINICAL HISTORY: Elevated LFTs TECHNIQUE: Sonography of the right upper quadrant was performed. Images were obtained and stored in a permanent archive. MQ: [id number] COMPARISON: None. RESULT: Limited by patient body habitus Pancreas: Normal sonographic appearance. Portions obscured: tail Liver: Echotexture: Normal, homogeneous. Echogenicity: Increased with poor penetration Surface contour: Smooth Lesions: None. Biliary: No intrahepatic biliary duct dilation. CBD: 0.3 cm at the hilum. Gallbladder: Normal caliber -Contents: No cholelithiasis -Wall: Normal -Other: No pericholecystic fluid. Right Kidney: No hydronephrosis. Ascites: None. IMPRESSION: Hepatic steatosis. Java Lead Architect: ELMA Transcribe Date/Time: Apr 23 2022 12:31P Dictated by : ROSE RAUSCH MD This examination was interpreted and the report reviewed and electronically signed by: ROSE RAUSCH MD on Apr 23 2022 12:31PM EST [id number] Normal [facility] US ABD RT UPPER QUADRANTon 1 06-21-2021 [facility] Basophil percentageon 2021 Bilirubin [Mass/Vol] 0.80 mg/dL 0.20-1.00 [facility] Work Phone: Comment on above: For patients on eltr ombopag therapy, use of Dimension [place] TBIL is not recommended. Chloride [Moles/Vol] 104 mmol/L 98-107 [facility] Work Phone: Cholesterol [Mass/Vol] 178 mg/dL <200 [facility] Work Phone: Comment on above: <200 mg/dL Desirable 200-240 mg/dL Borderline >240 mg/dL High Risk Glucose [Mass/Vol] 128 mg/dL 74-106 [facility] Work Phone: Comment on above: Fasting Glucose resu lt greater than or equal to 126 mg/dL suggests DIABETES MELLITUS per A.D.A. criteria. Potassium [Moles/Vol] 3.8 mmol/L 3.5-5.1 [facility] Work Phone: Protein [Mass/Vol] 7.9 g/dL 6.4-8.2 [facility] Work Phone: Sodium [Moles/Vol] 138 mmol/L 136-145 [facility] Work Phone: Triglyceride [Mass/Vol] 119 mg/dL <199 [facility] Work Phone: Comment on above: The drugs N-Acetylcy steine and Metamizole may falsely depress this assay.Serum Triglycerides Reference Interval Normal <150 mg/dL Borderline high 150 - 199 mg/dL High 200 - 499 mg/dL Very High > or = 500 mg/dL Direct bilirubinon 2 Bilirubin.direct [Mass/Vol] 0.17 mg/dL 0.00-0.30 [facility] Work Phone: Laboratory - Chemistry and C hemistry - challengeon 03-22-2022 ALP [Catalytic activity/Vol] 47 U/L 45-117 [facility] Work Phone: ALT [Catalytic activity/Vol] 127 U/L 16-61 [facility] Work Phone: CO2 [Moles/Vol] 24.0 mmol/L 21.0-32.0 [facility] Work Phone: Globulin (S) [Mass/Vol] 3.9 g/dL 2.2-4.2 [facility] Work Phone: Urea nitrogen/Creatinine [Mass ratio] 11.8 mg/mg 10-20 [facility] Work Phone: No Panel Informationon 03-22 Estimated GFR (MDRD) Amer 103 mL/min >60 [facility] Work Phone: Comment on above: GFR Calc Estimated GFR (MDRD) Non-Af Amer 85 mL/min >60 [facility] Work Phone: Comment on above: Non- GFR Calc Serum or plasma albumin maria l urement (mass/volume)on 03-22-2022 Albumin [Mass/Vol] 4.0 g/dL 3.2-5.0 [facility] Work Phone: Serum or plasma albumin/glob ulin mass ratioon 03-22-2022 Albumin/Globulin [Mass ratio] 1.0 {ratio} 0.9-2.4 [facility] Work Phone: Serum or plasma calcium maria l urement (mass/volume)on 03-22-2022 Calcium [Mass/Vol] 9.2 mg/dL 8.5-10.1 [facility] Work Phone: Serum or plasma cholesterol in HDL measurement (mass/volume)on 03-22-2022 Cholesterol in HDL [Mass/Vol] 48 mg/dL >40 [facility] Work Phone: Comment on above: The drugs N-Acetylcy steine and Metamizole may falsely depress this assay. Reference Range HDL <40 mg/dL Low HDL Cholesterol HDL >or= 60 mg/dL High HDL Cholesterol Serum or plasma cholesterol in VLDL measurement (mass/volume)on 03-22-2022 Cholesterol in VLDL [Mass/Vol] 24 mg/dL 5-40 [facility] Work Phone: Serum or plasma creatinine m easurement (mass/volume)on 03-22-2022 Creatinine [Mass/Vol] 1.02 mg/dL 0.70-1.30 [facility] Work Phone: Comment on above: The validity of the calculated GFR & GFRAA in patients over 70 years has not been determined. Clinical correlation is essential. Serum or plasma low density lipoprotein (LDL) cholesterol measurement (mass/volume)on 03-22-2022 Cholesterol in LDL [Mass/Vol] 106 mg/dL 0-130 [facility] Work Phone: Serum or plasma urea nitroge n measurement (mass/volume)on 03-22-2022 Urea nitrogen [Mass/Vol] 12 mg/dL 7-18 [facility] Work Phone: Thin prep Papanicolaou smear with manual screeningon 03-22-2022 Thin prep Papanicolaou smear with manual screening 73 U/L 15-37 [facility] Work Phone: Thin prep Papanicolaou smear with manual screening 10 5-15 [facility] Work Phone: Basophil percentageon 2021 Bilirubin [Mass/Vol] 0.70 mg/dL 0.20-1.00 [facility] Work Phone: Comment on above: For patients on eltr ombopag therapy, use of Dimension [place] TBIL is not recommended. Protein [Mass/Vol] 7.3 g/dL 6.4-8.2 [facility] Work Phone: Direct bilirubinon 2 Bilirubin.direct [Mass/Vol] 0.13 mg/dL 0.00-0.30 [facility] Work Phone: Laboratory - Chemistry and C hemistry - challengeon 09-20-2021 ALP [Catalytic activity/Vol] 44 U/L 45-117 [facility] Work Phone: ALT [Catalytic activity/Vol] 106 U/L 16-61 [facility] Work Phone: Globulin (S) [Mass/Vol] 3.4 g/dL 2.2-4.2 [facility] Work Phone: Serum or plasma albumin maria l urement (mass/volume)on 09-20-2021 Albumin [Mass/Vol] 3.9 g/dL 3.2-5.0 [facility] Work Phone: Thin prep Papanicolaou smear with manual screeningon 09-20-2021 Thin prep Papanicolaou smear with manual screening 51 U/L 15-37 [facility] Work Phone: Clinical Summary: HMSPatient IDon 04-29-2020 SOP [facility] Work Phone: Office Visit: New Complaint, Rm: 6on 04-29-2020 NEGATED: Highlighted rowMRI (magnetic resonance imaging) history of the Right wrist on 04/11/2020 at [facility] Work Phone: Clinical Lists Update: Prelo ad Extendedon 04-25-2020 Tobacco smoking status NHIS current someday smoker [facility] Work Phone: Clinical Summary: Outcome Lay mmaryon 04-22-2020 QuickDASH Assessment Final Score 23 [facility] Work Phone: QuickDASH Assessment item 1 1 [facility] Work Phone: QuickDASH Assessment item 10 2 [facility] Work Phone: QuickDASH Assessment item 11 2 [facility] Work Phone: QuickDASH Assessment item 2 2 [facility] Work Phone: QuickDASH Assessment item 3 1 [facility] Work Phone: QuickDASH Assessment item 4 2 [facility] Work Phone: QuickDASH Assessment item 5 1 [facility] Work Phone: QuickDASH Assessment item 6 3 [facility] Work Phone: QuickDASH Assessment item 7 2 [facility] Work Phone: QuickDASH Assessment item 8 2 [facility] Work Phone: QuickDASH Assessment item 9 3 [facility] Work Phone: diagnostic criteria for SLE #1 4 [facility] Work Phone: diagnostic criteria for SLE #10 4 [facility] Work Phone: diagnostic criteria for SLE #11 12 [facility] Work Phone: diagnostic criteria for SLE #12 15 [facility] Work Phone: diagnostic criteria for SLE #13 39.8 [facility] Work Phone: diagnostic criteria for SLE #14 50.8 [facility] Work Phone: diagnostic criteria for SLE #15 [phone] [facility] Work Phone: diagnostic criteria for SLE #2 4 [facility] Work Phone: diagnostic criteria for SLE #3 3 [facility] Work Phone: diagnostic criteria for SLE #4 4 [facility] Work Phone: diagnostic criteria for SLE #5 4 [facility] Work Phone: diagnostic criteria for SLE #6 4 [facility] Work Phone: diagnostic criteria for SLE #7 5 [facility] Work Phone: diagnostic criteria for SLE #8 3 [facility] Work Phone: diagnostic criteria for SLE #9 4 [facility] Work Phone: Clinical Summary: Scanned [facility] Summaryon 04-22-2020 adl form etoh alcohol performance beer, wine, liquor, [facility]: Beta HCG ( test) Ql (U) 1 time per year [facility] Work Phone: consumes three or more drinks of alcohol (beer, wine, liquor) daily or almost daily less than 1 drink per day Kayleigh l [facility] Work Phone: Data entered by patient cigar smoking less than 1 cigar per week [facility] Work Phone: Data entered by patient exercise frequency 3 days per week [facility] Work Phone: Data entered by patient exercise type walking, strength training, cycling [facility] Work Phone: data entered by patient, alcohol (ethanol or ETOH) use Yes [facility] Work Phone: Data entered by patient, allergy list I don't have any Drug AllergiesI don't have any Environmental AllergiesI don't have any Food Allergies [facility] Work Phone: data entered by patient, drug (of abuse) use No [facility] Work Phone: data entered by patient, Employer Name employed [facility] Work Phone: data entered by patient, exercise history Yes [facility] Work Phone: data entered by patient, mother's medical history ArthritisHyperthyroidism [facility] Work Phone: data entered by patient, past medical history FracturesObesity [facility] Work Phone: data entered by patient, paternal family history unknown My father's health history is unknown [facility] Work Phone: data entered by patient, 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, current smoker current someday smoker [facility] Work Phone: data entered by patient, 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, marital status [facility] Work Phone: data entered by patient, 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, 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 [facility] Work Phone: Exercise vein comment [employer] [facility] Work Phone: father of patient is alive or Alive [facility] Work Phone: Glucose [Mass/Vol] b complex-100mg/pill -1-1 per dayglucosamine-1500Mg/dose -3-1 per day [facility] Work Phone: Housing Type: apartment, house, group home, trailer, none house [facility] Work Phone: housing unit size (asthma environmental history, housing) (from single family to don't know) 2 floors [facility] Work Phone: medical history of patient's brother(s) Diabetes - non-insulin dependent [facility] Work Phone: mother of patient is alive or Alive [facility] Work Phone: Number of dependent children Yes [facility] Work Phone: sister of patient(s) alive or I do not have any sisters. My sister(s)' health history is unknown. [facility] Work Phone: tobacco use, when do you smoke? 22 [facility] Work Phone: Web entered surgical history comments Jaw surgery with titanium permanent screws [facility] Work Phone: MRI WRIST W/O CON RTon 04-11 MRI WRIST W/O CON RT MRI WRIST W/O CON R T Ordering Physician: Elier Somers MD 04/11/2020 5:37 PM MRI RIGHT WRIST WITHOUT CONTRAST: Clinical Statement: Right wrist pain. History of right wrist fracture as a child. Injured wrist nine months ago climbing down a rope. Comparison: None TECHNIQUE: MRI of the wrist was performed without contrast using a local coil. Multiplanar, multisequence MR imaging was performed. FINDINGS: There is some minimal marrow edema seen in the proximal pole of scaphoid likely due to a stress response. Otherwise bone marrow signal is within normal limits. No fractures are identified. The scapholunate intraosseous space is widened secondary to a tear of the scapholunate ligament. Lunotriquetral ligament is within normal. The triangular fibrocartilage is intact. The carpal tunnel, median nerve, ulnar nerve are unremarkable. The flexor tendons and extensor tendons are within normal limits. There are mild degenerative changes at the triscaphe joint. With marginal osteophytes and joint space narrowing. There is some reactive edema is a small amount of fluid within the radiocarpal joint and triscaphe joint. 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 There may be mild proximal migration of the capitate Bone contusion versus stress response in the proximal pole of the scaphoid. 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 Signed By: BERT PIERRE M.D. [address] 09-18-2017 Hemoglobin A1c/Hemoglobin.total mass fraction (Bld) 5.5 % Normal 4.0-6.0 [facility] ([place]) Comment on above: Performed By: #### B ILAD, CBC, ADIFF, ANEU, TSH, CMP, GFR, LIPID, A1C ####[address] [address] .Auto Diffon 09-17-2017 Basophils Auto #/vol (Bld) 0.00 10 3/mcL Normal 0.00-0.27 [facility] ([place]) Comment on above: Performed By: #### B ILAD, CBC, ADIFF, ANEU, TSH, CMP, GFR, LIPID, A1C ####[address] [address] Basophils/100 WBC Auto (Bld) 0.5 % Normal 0.0-2.5 [facility] ([place] Comment on above: Performed By: #### B ILAD, CBC, ADIFF, ANEU, TSH, CMP, GFR, LIPID, A1C ####[address] [address] Eosinophils 0.20 10 3/mcL Normal 0.00-0.65 [facility] ([place]) Comment on above: Performed By: #### B ILAD, CBC, ADIFF, ANEU, TSH, CMP, GFR, LIPID, A1C ####[address] [address] Eosinophils/100 leukocytes 2.6 % Normal 0.0-6.0 [facility] ([place] Comment on above: Performed By: #### B ILAD, CBC, ADIFF, ANEU, TSH, CMP, GFR, LIPID, A1C ####[address] [address] Lymphocytes 2.10 10 3/mcL Normal 0.90-4.32 [facility] ([place] Comment on above: Performed By: #### B ILAD, CBC, ADIFF, ANEU, TSH, CMP, GFR, LIPID, A1C ####[address] [address] Lymphocytes/100 leukocytes 29.5 % Normal 20.0-40.0 [facility] ([place] Comment on above: Performed By: #### B ILAD, CBC, ADIFF, ANEU, TSH, CMP, GFR, LIPID, A1C ####[address] [address] Monocytes 0.50 10 3/mcL Normal 0.09-1.40 [facility] ([place] Comment on above: Performed By: #### B ILAD, CBC, ADIFF, ANEU, TSH, CMP, GFR, LIPID, A1C ####[address] [address] Monocytes/100 leukocytes 6.9 % Normal 2.0-13.0 [facility] ([place] Comment on above: Performed By: #### B ILAD, CBC, ADIFF, ANEU, TSH, CMP, GFR, LIPID, A1C ####[address] [address] Neutrophils/100 WBC Auto (Bld) 60.5 % Normal 50.0-75.0 [facility] ([place] Comment on above: Performed By: #### B ILAD, CBC, ADIFF, ANEU, TSH, CMP, GFR, LIPID, A1C ####[address] [address] .GFRon 09-17-2017 eGFR (non-black) mL/min/{1.73_m2} Normal [facility] ([place]) Comment on above: Result Comment: GFR Population mean for , Non- Americans Ages 20-29 = 116 mL/min/1.73 sq.m. Ages 30-39 = 107 mL/min/1.73 sq.m. Ages 40-49 = 99 mL/min/1.73 sq.m. Ages 50-59 = 93 mL/min/1.73 sq.m. Ages 60-69 = 85 mL/min/1.73 sq.m. Ages 70+ = 75 mL/min/1.73 sq.m.Chronic Kidney Disease: Less than 60 mL/min/1.73 square metersEnd Stage Renal Disease: Less than 15 mL/min/1.73 square meters Performed By: #### B ILAD, CBC, ADIFF, ANEU, TSH, CMP, GFR, LIPID, A1C ####[address] [address] .NEUABSon 09-17-2017 Neutrophils 4.30 10 3/mcL Normal 2.25-8.10 [facility] ([place]) Comment on above: Performed By: #### B ILAD, CBC, ADIFF, ANEU, TSH, CMP, GFR, LIPID, A1C ####[place] [address] BILADon 09-17-2017 Bili Direct <0.1 Normal 0.0-0.4 [facility] ([place] Comment on above: Performed By: #### B ILAD, CBC, ADIFF, ANEU, TSH, CMP, GFR, LIPID, A1C ####[place] [address] CBCon 09-17-2017 Erythrocyte distribution width Auto Ratio (RBC) 14.3 % Normal 11.5-15.5 [facility] ([place]) Comment on above: Performed By: #### B ILAD, CBC, ADIFF, ANEU, TSH, CMP, GFR, LIPID, A1C ####[place] [address] Erythrocytes (RBC) 5.54 10 6/mcL Normal 4.50-6.00 [facility] ([place]) Comment on above: Performed By: #### B ILAD, CBC, ADIFF, ANEU, TSH, CMP, GFR, LIPID, A1C ####[place] [address] Hematocrit (HCT) 47.2 % Normal 40.0-52.0 [facility] ([place]) Comment on above: Performed By: #### B ILAD, CBC, ADIFF, ANEU, TSH, CMP, GFR, LIPID, A1C ####[place] [address] Hemoglobin mass conc (Bld) 16.4 G/dL Normal 13.0-17.5 [facility] ([place]) Comment on above: Performed By: #### B ILAD, CBC, ADIFF, ANEU, TSH, CMP, GFR, LIPID, A1C ####[place] [address] MCH 29.6 pg Normal 27.0-33.0 [facility] ([place]) Comment on above: Performed By: #### B ILAD, CBC, ADIFF, ANEU, TSH, CMP, GFR, LIPID, A1C ####[place] [id number] MCHC mass conc (RBC) 34.7 G/dL Normal 32.0-36.0 [facility] ([place]) Comment on above: Performed By: #### B ILAD, CBC, ADIFF, ANEU, TSH, CMP, GFR, LIPID, A1C ####[place] [address] MCV 85.2 fL Normal 81.0-100.0 [facility] ([place]) Comment on above: Performed By: #### B ILAD, CBC, ADIFF, ANEU, TSH, CMP, GFR, LIPID, A1C ####[place] [address] Platelet mean volume (PMV) 8.7 fL Normal 6.4-10.5 [facility]ly [facility] ([place]) Comment on above: Performed By: #### B ILAD, CBC, ADIFF, ANEU, TSH, CMP, GFR, LIPID, A1C ####[place] [address] Platelets 172 10 3/mcL Normal 150-450 [facility] ([place] Comment on above: Performed By: #### B ILAD, CBC, ADIFF, ANEU, TSH, CMP, GFR, LIPID, A1C ####[place] [address] WBC (Leukocytes) 7.10 10 3/mcL Normal 4.50-10.80 [facility] ([place] Comment on above: Performed By: #### B ILAD, CBC, ADIFF, ANEU, TSH, CMP, GFR, LIPID, A1C ####[place] [address] CMPon 09-17-2017 Albumin/Globulin Ratio 1.2 {ratio} Normal 0.9-1.6 [facility] ([place] Comment on above: Performed By: #### B ILAD, CBC, ADIFF, ANEU, TSH, CMP, GFR, LIPID, A1C ####[place] [address] Alk Phos 61 U/L Normal 38-126 [facility] ([place] Comment on above: Performed By: #### B ILAD, CBC, ADIFF, ANEU, TSH, CMP, GFR, LIPID, A1C ####[place] [address] Bili Total 0.4 mg/dL Normal 0.2-1.2 [facility] ([place] Comment on above: Performed By: #### B ILAD, CBC, ADIFF, ANEU, TSH, CMP, GFR, LIPID, A1C ####[place] [address] BUN/Creatinine Ratio 12.8 ratio Normal 10.0-22.0 [facility] ([place]) Comment on above: Performed By: #### B ILAD, CBC, ADIFF, ANEU, TSH, CMP, GFR, LIPID, A1C ####[place] [address] Creatinine 0.86 mg/dL Normal 0.60-1.40 [facility] ([place] Comment on above: Performed By: #### B ILAD, CBC, ADIFF, ANEU, TSH, CMP, GFR, LIPID, A1C ####[place] [address] Globulin 3.6 G/dL Normal 1.5-3.8 [facility] ([place] Comment on above: Performed By: #### B ILAD, CBC, ADIFF, ANEU, TSH, CMP, GFR, LIPID, A1C ####[place] [address] Protein 7.9 G/dL Normal 6.0-8.5 [facility] ([place] Comment on above: Performed By: #### B ILAD, CBC, ADIFF, ANEU, TSH, CMP, GFR, LIPID, A1C ####[place] [address] Alanine aminotransferase (ALT) 77 U/L High 12-55 [facility] ([place] Comment on above: Performed By: #### B ILAD, CBC, ADIFF, ANEU, TSH, CMP, GFR, LIPID, A1C ####[place] [address] Albumin 4.3 G/dL Normal 3.2-4.8 [facility] ([place] Comment on above: Performed By: #### B ILAD, CBC, ADIFF, ANEU, TSH, CMP, GFR, LIPID, A1C ####[place] [address] Aspartate aminotransferase (AST) 36 U/L High 8-34 [facility] ([place] Comment on above: Performed By: #### B ILAD, CBC, ADIFF, ANEU, TSH, CMP, GFR, LIPID, A1C ####[place] [address] Calcium 9.3 mg/dL Normal 8.4-10.1 [facility] ([place] Comment on above: Performed By: #### B ILAD, CBC, ADIFF, ANEU, TSH, CMP, GFR, LIPID, A1C ####[place] [address] Chloride 104 mmol/L Normal 98-110 [facility] ([place] Comment on above: Performed By: #### B ILAD, CBC, ADIFF, ANEU, TSH, CMP, GFR, LIPID, A1C ####[place] [address] CO2 29 mmol/L Normal 22-32 [facility] ([place] Comment on above: Performed By: #### B ILAD, CBC, ADIFF, ANEU, TSH, CMP, GFR, LIPID, A1C ####[place] [address] Electrolyte Balance 8.0 mEq/L Normal 4.0-15.0 [facility] ([place] Comment on above: Performed By: #### B ILAD, CBC, ADIFF, ANEU, TSH, CMP, GFR, LIPID, A1C ####[place] [address] Glucose mass conc 108 mg/dL Normal 70-110 [facility] ([place] Comment on above: Performed By: #### B ILAD, CBC, ADIFF, ANEU, TSH, CMP, GFR, LIPID, A1C ####[place] [address] Potassium molar conc 4.4 mmol/L Normal 3.5-5.0 [facility] ([place] Comment on above: Performed By: #### B ILAD, CBC, ADIFF, ANEU, TSH, CMP, GFR, LIPID, A1C ####[place] [address] Sodium 141 mmol/L Normal 136-145 [facility] ([place] Comment on above: Performed By: #### B ILAD, CBC, ADIFF, ANEU, TSH, CMP, GFR, LIPID, A1C ####[place] [address] Urea nitrogen 11.0 mg/dL Normal 8.0-22.0 [facility] ([place] Comment on above: Performed By: #### B ILAD, CBC, ADIFF, ANEU, TSH, CMP, GFR, LIPID, A1C ####[place] [address] LIPIDon 09-17-2017 Cholesterol 189 mg/dL Normal 50-199 [facility] ([place] Comment on above: Result Comment: Chol esterol Reference Interval:Less than 200 [id number] Borderline high [id number] and above High risk Performed By: #### B ILAD, CBC, ADIFF, ANEU, TSH, CMP, GFR, LIPID, A1C ####[place] [address] HDL Cholesterol 40 mg/dL Normal 40-59 [facility] ([place] Comment on above: Result Comment: HDL Reference Interval:Less than 40 Low - high risk60 or above Optimal/lowers risk Performed By: #### B ILAD, CBC, ADIFF, ANEU, TSH, CMP, GFR, LIPID, A1C ####[place] [address] LDL Cholesterol 107 mg/dL Normal 0-129 [facility] ([place] Comment on above: Result Comment: LDL is a calculated result and requires a 12- hr fast.LDL Reference Interval:Less than 100 [id number] Near or above [id number] Borderline high [id number] High rloo077 and above Very high risk Performed By: #### B ILAD, CBC, ADIFF, ANEU, TSH, CMP, GFR, LIPID, A1C ####[place] [address] Triglyceride 211 mg/dL High 3-149 [facility] ([place] Comment on above: Result Comment: Trig lyceride Reference Interval:Less than 150 [id number] Borderline high [id number] High dmde250 or higher Very high risk Performed By: #### B ILAD, CBC, ADIFF, ANEU, TSH, CMP, GFR, LIPID, A1C ####[place] [id number] [place] [address] TSHon 09-17-2017 Thyroid stimulating hormone (TSH) 1.620 mcIU/mL Normal 0.360-3.740 [facility] ([place]) Comment on above: Result Comment: Penny tineo note ? as of 12/01/16 new pediatric reference intervals were added for this test. Performed By: #### B ILAD, CBC, ADIFF, ANEU, TSH, CMP, GFR, LIPID, A1C ####[place] [id number] [address] [place] [address] Vital Signs Date Time Vital Sign Value Performing Clinician Facility 07-11-2024 13:13-0500 Body height 185.[address] Elier Somers MD Work Phone: [facility] 07-11-2024 13:13-0500 Body mass index (BMI) [Ratio] 35.5 kg/m2 Dr. Elier Somers MD Work Phone: [facility] 07-11-2024 13:13-0500 Body temperature 98.6 [degF] Dr. Elier Somers MD Work Phone: [facility] 07-11-2024 13:13-0500 Body weight 122.[address] Elier Somers MD Work Phone: [facility] 07-11-2024 13:13-0500 Diastolic blood pressure 62 mm[Hg] Dr. Elier Somers MD Work Phone: [facility] 07-11-2024 13:13-0500 Heart rate 90 /min Dr. Elier Somers MD Work Phone: [facility] 07-11-2024 13:13-0500 Respiratory rate 17 /min Dr. Elier Somers MD Work Phone: [facility] 07-11-2024 13:13-0500 SaO2% (BldA) [Mass fraction] 97 % Dr. Elier Somers MD Work Phone: [facility] 07-11-2024 13:13-0500 Systolic blood pressure 110 mm[Hg] Dr. Elier Somers MD Work Phone: [facility] 01-24-2023 07:44-0400 Body height 185.42 cm [facility] 01-24-2023 07:44-0400 Body weight 125.64 kg [facility] 12-27-2022 08:00-0400 Body height 185.42 cm [facility] 12-27-2022 08:00-0400 Body weight 126.46 kg [facility] 11-19-2022 09:46-0400 Body height 185.42 cm [facility] 11-19-2022 09:46-0400 Body weight 123.92 kg [facility] 10-08-2022 10:12-0400 Body height 185.42 cm [facility] 10-08-2022 10:12-0400 Body weight 130.09 kg [facility] 09-03-2022 10:03-0400 Body height 185.42 cm [facility] 09-03-2022 10:03-0400 Body weight 134.71 kg [facility] NEGATED: Highlighted [id number] 08:25-0500 BMI (Body Mass Index) 29.85 kg/m2 Aislinn Carboneo AT [facility] Work Phone: NEGATED: Highlighted [id number] 08:25-0500 Body weight 102.97 kg Aislinn Carboneo AT [facility] Work Phone: NEGATED: Highlighted [id number] 08:25-0500 Body weight 103 kg Aislinn Carboneo AT [facility] Work Phone: NEGATED: Highlighted [id number] 08:25-0500 Height 186.06 cm Aislinn Carboneo AT [facility] Work Phone: NEGATED: Highlighted [id number] 08:25-0500 Height 186 cm Aislinn Carboneo AT [facility] Work Phone: Encounters Encounter Date Encounter Type Care Provider Facility Start: 08-06-2024 End: 08-06-[address] Elier Somers MD Work Phone: [facility] Work Phone: Start: 08-06-2024 End: 08-06-[address] Elier Somers MD -Radiology, [place] Work Phone: Start: 08-06-2024 End: 08-06-2024 ambulatory Elier Somers Facility:[facility] Start: 07-11-2024 End: 07-11-2024 Patient encounter procedure Pad[facility] MORENOC [facility] Work Phone: Start: 07-11-2024 End: 07-11-2024 ambulatory Elier Somers Facility:[facility] Start: 05-14-2024 End: 05-14-[address] Elier Somers MD -Radiology, [place] Work Phone: Start: 05-14-2024 End: 05-14-2024 ambulatory Elier Somers Facility:[facility] Start: 03-27-2024 End: 03-27-2024 ambulatory Elier Somers Facility:[facility] Start: 04-29-2023 End: 04-29-2023 ambulatory [facility] Work Phone: Start: 04-29-2023 End: 04-29-2023 Discharged Recurring [facility]-Physical Therapy Work Phone: Start: 02-14-2023 ambulatory ELIER SOMERS Fa cility:[facility] Start: 02-14-2023 End: 02-14-2023 Subsequent hospital visit by physician [facility] (1.5t) [facility] Comment on above: Spondylolisthesis, s ite unspecified [M43.10] Start: 01-24-2023 End: 02-16-2023 ambulatory [facility] Work Phone: Start: 01-24-2023 End: 02-16-2023 Discharged Recurring [facility]-Nutritional Services Work Phone: Start: 01-09-2023 End: 01-09-2023 ambulatory [facility] Work Phone: Start: 01-09-2023 End: 01-09-2023 Patient encounter procedure [facility]-Radiology, [place] Work Phone: Start: 12-27-2022 End: 01-17-2023 ambulatory [facility] Work Phone: Start: 12-27-2022 End: 01-17-2023 Discharged Recurring [facility] Work Phone: Start: 12-27-2022 Registered Recurring [facility] Work Phone: Start: 12-17-2022 End: 12-17-2022 ambulatory [facility] Work Phone: Start: 12-17-2022 End: 12-17-2022 Patient encounter procedure [facility]-Laboratory, [place] Work Phone: Start: 11-19-2022 End: 12-17-2022 ambulatory [facility] Work Phone: Start: 11-19-2022 End: 12-17-2022 Discharged Recurring [facility] Work Phone: Start: 10-08-2022 End: 10-17-2022 ambulatory [facility] Work Phone: Start: 10-08-2022 End: 10-17-2022 Discharged Recurring [facility] Start: 09-03-2022 End: 09-16-2022 ambulatory [facility] Work Phone: Start: 09-03-2022 End: 09-16-2022 Discharged Recurring [facility] Start: 04-20-2022 End: 04-20-2022 ambulatory ELIER SOMERS Facility:[facility] Start: 04-20-2022 End: 04-20-2022 Subsequent hospital visit by physician [facility] Work Phone: Radiology Comment on above: Other specified abno rmal findings of blood chemistry [R79.89] Start: 03-22-2022 End: 03-22-2022 ambulatory [facility] Work Phone: Start: 03-22-2022 End: 03-22-2022 Patient encounter procedure [facility] Start: 01-25-2022 End: 01-25-2022 ambulatory [facility] Work Phone: Start: 01-25-2022 End: 01-25-2022 Patient encounter procedure [facility] Start: 09-20-2021 End: 09-20-2021 Patient encounter procedure [facility] Start: 07-25-2021 End: 07-25-2021 Patient encounter procedure [facility] Start: 04-29-2020 End: 04-29-2020 Patient encounter procedure Coby Sanford MD Work Phone: [facility] Work Phone: Procedures Date Procedure Procedure Detail Performing Clinician Start: 08-06-2024 X-ray of chest, PA a nd lateral views Dr. Elier Somers MD Work Phone: Start: 05-14-2024 X-ray of knee, four or more views Dr. Elier Somers MD Work Phone: Start: 01-09-2023 X-ray of lumbosacral spine Start: 04-20-2022 Us abdominal real ti me w/image limited [facility] Provider Start: 01-25-2022 X-ray of both feet Start: 01-25-2022 Plain x-ray of wrist Start: 07-25-2021 X-ray of both feet Start: 04-29-2020 End: 04-29-2020 Blood pressure screening not performed - reason not given Coby Sanford MD Work Phone: Start: 04-29-2020 End: 04-29-2020 BMI documented as above normal parameters - follow-up documented Coby Sanford MD Work Phone: Start: 04-29-2020 End: 04-29-2020 Documentation of current medications Coby Sanford MD Work Phone: Start: 04-29-2020 End: 04-29-2020 Pain assessment documented as negative - follow-up not required Coby Sanford MD Work Phone: Start: 04-29-2020 End: 04-29-2020 Tobacco screening or cessation counseling not performed - unknown reason Coby Sanford MD Work Phone: NEGATED: Highlighted rowStart: 04-29-2020 End: 04-29-2020 Documentation of current medications Aislinn Dominguez AT Plan of Treatment Date Care Activity Detail Author Start: 09-26-2031 Urine microalbumin profile DTaP,Tdap,Td Vaccine (2 - Td or Tdap) [facility] Start: 01-18-2023 Influenza vaccination Influenza Vaccine (#1) [facility] Start: 05-20-2022 Depression Assessment Depression Assessment [facility] Start: 06-15-2020 End: 06-15-2020 Appointment Appointment [facility] Work Phone: Start: 06-02-2020 End: 06-02-2020 Appointment Appointment [facility] Work Phone: Start: 05-27-2020 End: 05-27-2020 Appointment Appointment [facility] Work Phone: Start: 04-29-2020 End: 04-29-2020 Appointment Appointment [facility] Work Phone: Start: 2015 Lipid 1996 panel - Serum or Plasma Lipid Screening [facility] Start: 1999 Urine microalbumin profile DTaP,Tdap,Td Vaccine (1 - Tdap) [facility] Start: 1998 Hepatitis C Screening Hepatitis C Screening [facility] Start: 1998 HIV Screening HIV Screening [facility] Start: 1980 Covid-19 Vaccine (#1) Covid-19 Vaccine (#1) [facility] Start: 1980 Hepatitis B Vaccine (1 of 3 - 3-dose series) Hepatitis B Vaccine (1 of 3 - 3-dose series) [facility] Payers Date Payer Category Payer Self-pay [id number] 2021 Unknown [id number] 2021 Unknown MMO MMO [employer] PPO [id number] 2021-Present [phone] [address] [place] [address] PPO [id number] Unknown [id number] Unknown [id number] Unknown [id number] Unknown [id number] Social History Date Type Detail Facility Start: 04-29-2020 End: 04-29-2020 Assertion Unknown if ever smoked [facility] Work Phone: Start: 1980 Sex Assigned At Male [facility] Start: 1980 Sex Assigned At Not on file [facility] Gender identity Not on file [facility] Start: 07-11-2024 Tobacco smoking status NHIS Never smoked tobacco (finding) [facility] Start: 08-14-2024 Sex Male (finding) [facility] NEGATED: Highlighted rowStart: 04-29-2020 End: 04-29-2020 Employment detail Employment detail [facility] Work Phone: Radiology Diagnostic study note 08-06-2024 Note Date & Type Note Facility 08-06-2024 Radiology Diagnostic study note [facility] Imaging Services [address] [place] [address] Chest PA and Lateral MR#: [id number] Acct: [id number] Name: SAPNA BOYD Rep #: [id number] : 1980 M 44 From: Yanni Carcamo MD PCP: Dr. Elier Somers MD Status: REG CLI Study:Chest PA and Lateral Date of Exam: 08/06/24 Exam# [id number] Ordering Dr: Duyen Somers MD EXAM: XR Chest, 2 Views CLINICAL INDICATION: COUGH TECHNIQUE: Frontal and lateral views of the chest. COMPARISON: No relevant prior studies available. FINDINGS: LUNGS AND PLEURAL SPACES: Unremarkable. No consolidation. No pneumothorax. HEART: Unremarkable. No cardiomegaly. MEDIASTINUM: Unremarkable. Normal mediastinal contour. BONES/JOINTS: Unremarkable. No acute fracture. RAD/Chest PA and Lateral IMPRESSION: No acute cardiopulmonary process. Reading [facility] CC: Dr. Elier Somers MD ~ Java Lead Architect: Signed [facility] Evaluation note 07-11-2024 Note Date & Type Note Facility 07-11-2024 Evaluation note Diagnosis Onset Date Resolution Influenza A acute June 12:59pm [facility] Work Phone: Discharge summary 07-10-2023 Note Date & Type Note Facility 07-10-2023 Discharge summary Note Date/Time July 10, 2023 4:41pm [facility] Physical Therapy [facility] [address] [place] [address]. [address] [place] [address] / REHABILITATION SERVICES DISCHARGE SUMMARY MR#: [id number] Acct: [id number] Name: SAPNA BOYD Rep #: [id number] : 1980 43 From: Chanel Mendieta MP T Referring Dr.: Dr. Roberto Garcia MD Status: REG RCR Insurance: [facility] SELF PAY INSURANCE Patient Information Patient Information: SAPNA BODY was seen in my office for initial evaluation on . The following Plan of Care was established for this patient: Last Seen Last Seen: This patient was last seen in our office . Pertinent comments regarding their Physical therapy will appear below: At this point I will be discontinuing this patient from physical therapy. I would be happy to see this patient again in the future if found appropriate by the physician. Thank you! RITA Giron <Electronically signed by Chanel Mendieta MPT> 07/10/23 1646 CC: Dr. Roberto Garcia MD; Dr. Jc Somers MD ~ Signed [facility] Work Phone: Progress note 02-14-2023 Note Date & Type Note Facility 02-14-2023 Note HNO ID: [id number] Author: Maria Isabel Hudson RT(R) Service: ? Author Type: Technologist Type: Progress Notes Filed: 02/14/2023 11:21 AM Note Text: Radiology Service Progress Note DATE OF SERVICE: February 14, 2023 TIME: 10:44 AM PATIENT IDENTITY VERIFICATION COMPLETED USING TWO (2) STANDARD IDENTIFIERS: Name and Date of confirmed by patient verbally. FALL SCREENING: Has the patient had 2 falls in the last year or 1 fall with injury or currently using an Ambulatory Assistive Device (Walker, Cane, Wheelchair, Crutches, etc.)? No PATIENT GENDER DATA: Male PATIENT RELEVANT IMPLANT DATA REVIEWED: Yes ALLERGIES: Reviewed and unchanged CONTRAST ALLERGY: NO. EXAM: MRI - CONTRAST TYPE: GROUP II PERIPHERAL IV DATA: Ambulatory: A peripheral IV was started in the Left antecubital site with a Angio cath: 22 gauge. RADIOLOGY DEPARTMENT: MR; Exam(s) Completed: Spine: Lumbar spine SIGNATURE: Maria Isabel Hudson RDMS, RVT- Shelia ([employer]) PATIENT NAME: Sapna Boyd DATE: February 14, 2023 TIME: 10:44 AM [facility] History of Present illness Narrative 02-14-2023 Maria Isabel Hudson RT(R) - 02/14/2023 10:30 AM EDT Note Date & Type Note Facility 02-14-2023 History of Presen t illness Narrative Radiology Service Progress Note DATE OF SERVICE: February 14, 2023 TIME: 10:44 AM PATIENT IDENTITY VERIFICATION COMPLETED USING TWO (2) STANDARD IDENTIFIERS: Name and Date of confirmed by patient verbally. FALL SCREENING: Has the patient had 2 falls in the last year or 1 fall with injury or currently using an Ambulatory Assistive Device (Walker, Cane, Wheelchair, Crutches, etc.)? No PATIENT GENDER DATA: Male PATIENT RELEVANT IMPLANT DATA REVIEWED: Yes ALLERGIES: Reviewed and unchanged CONTRAST ALLERGY: NO. EXAM: MRI - CONTRAST TYPE: GROUP II PERIPHERAL IV DATA: Ambulatory: A peripheral IV was started in the Left antecubital site with a Angio cath: 22 gauge. RADIOLOGY DEPARTMENT: MR; Exam(s) Completed: Spine: Lumbar spine SIGNATURE: Maria Isabel Hudson RDMS, RVT- Shelia ([employer]) PATIENT NAME: Sapna Boyd DATE: February 14, 2023 TIME: 10:44 AM documented in this encounter [facility] Progress note 04-20-2022 Note Date & Type Note Facility 04-20-2022 Note HNO ID: [id number] Author: Deena Bardales RDMS Service: ? Author Type: Funeral Location Manager Type: Progress Notes Filed: 04/20/2022 9:43 AM Note Text: Radiology Service Progress Note PATIENT NAME: Sapna Boyd DATE OF SERVICE: April 20, 2022 TIME: 9:43 AM PATIENT IDENTITY VERIFICATION COMPLETED USING TWO (2) IDENTIFIERS: Name and Date of confirmed by patient verbally. FALL SCREENING: Has the patient had 2 falls in the last year or 1 fall with injury or currently using an Ambulatory Assistive Device (Walker, Cane, Wheelchair, Crutches, etc.)? No PATIENT GENDER DATA: Male PATIENT RELEVANT IMPLANT DATA REVIEWED: Not Applicable RADIOLOGY DEPARTMENT: Ultrasound PERIPHERAL IV DATA: Not applicable SIGNED BY: Deena Bardales RDMS April 20, 2022 9:43 AM [facility] History of Present illness Narrative 04-20-2022 Deena Bardales RDMS - 04/20/2022 7:30 AM EST Note Date & Type Note Facility 04-20-2022 History of Presen t illness Narrative Radiology Service Progress Note PATIENT NAME: Sapna Boyd DATE OF SERVICE: April 20, 2022 TIME: 9:43 AM PATIENT IDENTITY VERIFICATION COMPLETED USING TWO (2) IDENTIFIERS: Name and Date of confirmed by patient verbally. FALL SCREENING: Has the patient had 2 falls in the last year or 1 fall with injury or currently using an Ambulatory Assistive Device (Walker, Cane, Wheelchair, Crutches, etc.)? No PATIENT GENDER DATA: Male PATIENT RELEVANT IMPLANT DATA REVIEWED: Not Applicable RADIOLOGY DEPARTMENT: Ultrasound PERIPHERAL IV DATA: Not applicable SIGNED BY: Deena Bardales RDMS April 20, 2022 9:43 AM documented in this encounter [facility] Evaluation note Note Date & Type Note Facility Evaluation note No assessment information availa ble [facility] Work Phone: Reason for referral (narrative) Note Date & Type Note Facility Reason for referral (narrative) No reason for referral information available [facility] Work Phone: Summary Purpose Family History Relationship Condition Age at Onset Recorded Date/T desiree mother Hypertension Unknown Advance Directives No Advanced Directives Records FoundNo Advanced Directives Records FoundThere may be information available, but it has not been provided by the sender.No Advanced Directives Records FoundNo Advanced Directives Records FoundNo Advanced Directives Records Found Chief Complaint Chief Complaint Description Start Date right wrist pain Preliminary chief co mplaint data, not yet signed by the author as of Instructions Instruction Description Start Date CompletedPatient advised to follow-up with Primary Care Physician for BMI management. Assessments There may be information available, but it has not been provided by the sender. Review of System There may be information available, but it has not been provided by the sender. History of Present Illness There may be information available, but it has not been provided by the sender. Chief Complaint and Reason for Visit Chief Complaint TOE INJURY EORDER Chief Complaint WRIST AND FOOT PAIN Chief Complaint WRIST AND FOOT PAIN EORDER Chief Complaint OBESITY Chief Complaint OBESITY OBESITY Chief Complaint OBESITY OBESITY OBESITY EORDER Chief Complaint OBESITY OBESITY EORDER OBESITY Chief Complaint OBESITY EORDER OBESITY OBESITY Chief Complaint LUMBAR DDD. RX HERE Chief Complaint Admit Date E-ORDER May 14, 2024 11:11am Cough July 11, 2024 12:59pm cough August 06, 2024 3:4 1pm Reason for Visit Admit Date Influenza A July 11, 2024 12:59pm Additional Source Comments (unrecognized sect ion and content) No Status Records FoundNo Status Records FoundNo Status Records FoundNo Status Records FoundNo Status Records Found INFORMATION SOURCE (unrecogn ized section and content) DATE CREATED AUTHOR 11/07/2017 [facility] ([place]) DATE CREATED AUTHOR AUTHOR'S ORGANIZ ATION 2020 [facility] DATE CREATED AUTHOR AUTHOR'S ORGANIZ ATION 04/24/2022 [facility] DATE CREATED AUTHOR AUTHOR'S ORGANIZ ATION 02/21/2023 [facility] DATE CREATED AUTHOR AUTHOR'S ORGANIZ ATION 08/15/2024 [facility] Reason for Visit (unrecogniz ed section and content) Reason For Visit Description New Complaint Preliminary reason f or visit data, not yet signed by the author as of right wrist pain Specialty Diagnoses / Procedures Referred By Contac t Referred To Contact [facility] Diagnoses Spondylolisthesis, site unspecified Anterolisthesis (M43.10) Procedures MRI SPINAL CANAL LUMBAR W/O & W/CONTR MATRL MRI [facility] NEU1 [address] Elier Somers MD [address] [place] [address] [facility] [address] [place] [address] Referral ID Status Reason Start Date Expiration Date Visits Re quested Visits Authorized [id number] Closed 01/24/2023 03/10/2023 1 1 Goals (unrecognized section and content) Goals may be documented in a n alternate sectionGoals may be documented in an alternate sectionGoals may be documented in an alternate sectionGoals may be documented in an alternate sectionGoals may be documented in an alternate sectionGoals may be documented in an alternate sectionGoals may be documented in an alternate sectionGoals may be documented in an alternate sectionGoals may be documented in an alternate sectionGoals may be documented in an alternate sectionGoals may be documented in an alternate sectionGoals may be documented in an alternate section Care Teams (unrecognized sec tion and content) Team Status: Active Member Role Status Dates Dr. Jc Somers MD Family Provider Active Dr. Jc Somers MD Primary Care Provider Activ e Team Status: Inactive Member Role Status Dates Dr. Jc Somers MD Primary Care Provider, Atte nding Provider Active Team Status: Inactive Member Role Status Dates Dr. Jc Somers MD Primary Care Provider, Attending Provider, Referring Provider Active Team Status: Active Member Role Status Dates Dr. Jc Somers MD Primary Care Provider, Attending Provider, Referring Provider Active Team Status: Inactive Member Role Status Dates Dr. Jc Somers MD Primary Care Provider Activ e Dr. Derek Castro MD Attending Provider, Referring Pr ovider Active Team Status: Inactive Member Role Status Dates Dr. Jc Somers MD Primary Care Provider Activ e Dr. Roberto Garcia MD Attending Provider, Referring Pr ovider Active Team Status: Active Member Role Status Dates Dr. Elier Somers MD Family Provider Active Dr. Elier Somers MD Primary Care Provider Acti ve Team Status: Inactive Member Role Status Dates Dr. Elier Somers MD Primary Care Provider Acti ve Start: May 14, 2024 End: May 14, 2024 Dr. Elier Somers MD Attending Provider Active Start: May 14, 2024 End: May 14, 2024 Dr. Elier Somers MD Referring Provider Active Start: May 14, 2024 End: May 14, 2024 Team Status: Inactive Member Role Status Dates Dr. Elier Somers MD Primary Care Provider Acti ve Start: July 11, 2024 End: July 11, 2024 Dr. Elier Somers MD Referring Provider Active Start: July 11, 2024 End: July 11, 2024 [facility] Attending Provider Active Start: July 11, 2024 End: July 11, 2024 Team Status: Inactive Member Role Status Dates Dr. Elier Somers MD Primary Care Provider Acti ve Start: August 06, 2024 End: August 06, 2024 Dr. Elier Somers MD Attending Provider Active Start: August 06, 2024 End: August 06, 2024 Dr. Elier Somers MD Referring Provider Active Start: August 06, 2024 End: August 06, 2024 Source Comments (unrecognize d section and content) In the event this informatio n is protected by the Federal Confidentiality of Alcohol and Drug Abuse Patient Records regulations: The Federal rules restrict any use of the information to criminally investigate or prosecute any alcohol or drug abuse patient.[facility] the event this information is protected by the Federal Confidentiality of Alcohol and Drug Abuse Patient Records regulations: The Federal rules restrict any use of the information to criminally investigate or prosecute any alcohol or drug abuse patient.[facility] FOR RECORDS PERTAINING TO PATIENTS WHO ARE OR HAVE BEEN ENROLLED IN A CHEMICAL DEPENDENCY/SUBSTANCEABUSE PROGRAM, SOME INFORMATION MAY BE OMITTED. This clinical summary was aggregated from multiple sources. Caution should be exercised in using it in the provision of clinical care. This summary normalizes information from multiple sources, and as a consequence, information in this document may materially change the coding, format and clinical context of patient data. In addition, data may be omitted in some cases. CLINICAL DECISIONS SHOULD BE BASED ON THE PRIMARY CLINICAL RECORDS. [employer] [facility]. provides no warranty or guarantee of the accuracy or completeness of information in this document.
[2025-03-30 10:02] LABS: Hematocrit 42.4 % (40-54); Hemoglobin 15.3 g/dL (13.0-16.5); Mean Corp Hgb Conc 36.1 g/dL (32-36); Mean Corpuscular Volume 83.1 fL (80-94); Mean Platelet Vol. 10.2 fl (6.2-12.0); Platelet Count 163 K/mm3 (150-450); RBC Distribution Width CV 12.7 % (11.6-14.6); RBC Distribution Width SD 38.2 fl (35.1-43.9); Red Blood Count 5.10 M/mm3 (4.6-6.2); White Blood Count 7.4 K/mm3 (4.4-11.0)
[2025-03-30 10:30] LABS: AST(SGOT) 39 U/L (<=37); Alanine Aminotransfer ALT/SGPT 62 U/L (<=46); Albumin, Serum 4.3 g/dL (3.5-5.0); Alkaline Phosphatase 46 U/L (40-129); Anion Gap 13 (5-15); BUN 16 mg/dL (4-19); BUN/Creat Ratio 17.9 RATIO (10-20); Calcium,Total 8.9 mg/dL (7.6-11.0); Carbon Dioxide 22.1 mmol/L (21.0-32.0); Chloride 103 mmol/L (98-108); Cholesterol 182 mg/dL (<=200); Globulin 2.6 g/dL (2.2-4.2); Glucose 143 mg/dL (70-99); Low Density Lipoprotein Calc. 109 mg/dL; Potassium 3.7 mmol/L (3.3-5.1); Triglycerides 143 mg/dL; Very Low Density Lipoprotein 29 mg/dL (5-40); cholesterol:hdl ratio screen 3.83
== END | disposition home or self-care (01) ==
LOC: MTLAB 08:09
PROVIDERS: PCP Family Medicine; Referring Provider Family Medicine; Visit Provider Family Medicine
DX: E11.65 Type 2 diabetes mellitus with hyperglycemia (principal); R74.8 Abnormal levels of other serum enzymes
CPT/HCPCS: 36415; 80053; 80061; 84443; 85027